=== PATIENT | female | born 1965 | race Two or more races ===

== ENCOUNTER 2021-12-25 12:33 | Inpatient (IN) | payer MEDICAID, SELFPAY ==
--- NOTE | ~2021-12-25 | XR_ITS ---
EXAMINATION: CHEST 2 VIEWS CLINICAL INFORMATION: TABARES . COMPARISON: No recent pertinent prior studies are available for comparison. TECHNIQUE: PA and lateral views of the chest obtained. FINDINGS: The lungs are well expanded. Minimal increased bibasilar markings more likely due to atelectasis. Early infiltrates considered less likely. Mild central vascular prominence but no associated effusion, overt edema, or pneumothorax. Cardiac and mediastinal silhouettes are within normal limits for technique. No acute bony abnormality seen XR/XR chest 2V IMPRESSION: Minimal increased basilar markings more likely due to atelectasis. Mild central vascular prominence but no overt edema
--- NOTE | ~2021-12-25 | US_ITS ---
EXAMINATION: US RETROPERITONEAL LIMITED (RENAL ONLY) and renal Doppler exam CLINICAL INFORMATION: Rule out renal artery stenosis. COMPARISON: None TECHNIQUE: Grayscale and color imaging of the kidneys. Grayscale color and Doppler imaging of the renal arteries in the waveform spectral analysis. FINDINGS: RIGHT KIDNEY: 9.1 x 5 x 4.7 cm (SAG x AP x TRV). The kidney is normal in size, contour, and echogenicity. Renal cortical thickness is normal. There are 3 stones measuring 6 mm in the upper pole, 5 mm in the midpole and 6 mm in the lower pole. No focal parenchymal lesions. No hydronephrosis. LEFT KIDNEY: 9.6 x 4.9 x 4.6 cm (SAG x AP x TRV). The kidney is normal in size, contour, and echogenicity. Renal cortical thickness is normal. There is a 5 mm stone in the midpole. No focal parenchymal lesions. No hydronephrosis. Aortic peak systolic velocity of the mid abdominal aorta is slightly elevated measuring 129 cm/s and cannot be used to calculate renal artery to aorta ratio. Visualization of the renal arteries is limited. Visualized right renal artery appears patent. The renal artery peak systolic velocities are normal measuring 87, 66 and 92 cm/s proximally, in the midportion and distally. Resistive indices in the interlobar arteries in the right kidney are normal measuring 0.7. The right renal vein is patent. The visualized left renal artery is patent. Left renal artery velocity measures 157, 49 and 71 cm/s proximally, in the midportion and distally. Left renal artery segmental resistive indices are slightly elevated measuring 0.8. The left renal vein is patent. US/US renal doppler IMPRESSION: Bilateral renal stones, right greater than left. Limited renal Doppler exam. Slightly elevated resistive indices in the left kidney otherwise renal Doppler exam.
[2021-12-25 12:47] VITALS: BP 219/95; PULSE 72; RESP 16; TEMP 35.8; O2SAT 97; BMI 29.4
[2021-12-25 13:48] VITALS: BP 204/88; PULSE 72; RESP 18; O2SAT 98
--- NOTE | 2021-12-25 13:51 | ECG_ITS ---
Test Reason : Barnes Blood Pressure : / mmHG Vent. Rate : 068 BPM Atrial Rate : 068 BPM P-R Int : 164 ms QRS Dur : 084 ms QT Int : 420 ms P-R-T Axes : 027 040 -67 degrees QTc Int : 446 ms Sinus rhythm with Fusion complexes and Premature atrial complexes Cannot rule out Inferior infarct , age undetermined ST & T wave abnormality, consider lateral ischemia Abnormal ECG No previous ECGs available Referred By: Trish Arrington Electronically Signed By:CASSIE STARKEY MD
--- NOTE | 2021-12-25 13:52 | ED_ITS ---
HPI - Female Genitourinary General Chief complaint: Urogenital-Female Stated complaint: Trouble urinating/bloating Time Seen by Provider: 12/25/21 13:34 Source: patient and science interpreter Mode of arrival: ambulatory Limitations: language barrier History of Present Illness HPI Narrative: 56 yo female with history of IDDM, HTN, CKD here with complaints of TABARES x 24 hrs with dry cough and feeling like her legs are swollen. NO CP, fevers, weight gain. Tells me her bp was high this morning and she took all her meds (her normal bp 180-190 systolic per patient). also c/o since yesterday only able to void small amounts with no reports of back pain, abdominal pain, urinary urgency/frequency/dysuria, fever. Related Data Home Medications Medication Instructions Recorded Confirmed amlodipine 10 mg tablet 1 tab PO DAILY 12/25/21 12/25/21 aspirin 81 mg tablet,delayed 1 tab PO DAILY 12/25/21 12/25/21 release atorvastatin 40 mg tablet 1 tab PO DAILY 12/25/21 12/25/21 carvedilol 25 mg tablet 1 tab PO BID 12/25/21 12/25/21 hydrochlorothiazide 12.5 mg capsule 1 cap PO QAM 12/25/21 12/25/21 insulin human U-100 NPH-regulr 25 unit SUBCUT DAILY@1000 12/25/21 12/25/21 70-30 mix 100 unit/mL subcutaneous susp (Humulin 70/30 U-100 Insulin) isosorbide mononitrate 30 mg 1 tab PO QAM 12/25/21 12/25/21 tablet,extended release 24 hr lisinopril 20 mg tablet 1 tab PO DAILY 12/25/21 12/25/21 Allergies Allergy/AdvReac Type Severity Reaction Status Date / Time Unable to Assess Allergy Verified 12/25/21 13:51 Review of Systems Review of Systems: Yes all other systems are reviewed and are negative Constitutional: Constitutional: Reports no additional constitutional c omplaints, Denies body ache(s), Denies chills, Denies fever(s), Denies headache(s) and Denies weakness Eyes: Eyes: Reports no additional eye complaints and Denies change in vision ENT: Reports system reviewed and no additional complaints, except as documented, Denies dizziness, Denies headache(s), Denies nasal congestion, Denies nasal discharge and Denies neck pain Cardiovascular: Cardiovascular: Reports no additional cardiovascular complaints, Denies chest pain, Reports leg edema, Denies dyspnea and Reports dyspnea on exertion Respiratory: Respiratory: Reports no additional respiratory complaints, Re ports cough, Denies dyspnea and Reports dyspnea on exertion Gastrointestinal: Gastrointestinal: Reports no additional gastrointestinal complaints, Denies abdominal pain, Denies diarrhea, Denies nausea and Denies vomiting Genitourinary: Genitourinary: Reports no additional female genitourinary complaints, Denies hematuria, Reports difficulty voiding, Denies dysuria, Denies pelvic pain, Denies flank pain, Denies urinary incontinence, Denies urinary hesitancy and Denies urinary urgency Comments: +voiding small amounts Musculoskeletal: Musculoskeletal: Reports no additional musculoskeletal complaints, Denies back pain, Denies arthralgias, Denies joint swelling, Denies neck pain, Denies numbness and Denies tingling Integumentary/Breasts: Skin/Breast: Reports system reviewed and no additional complaints, except as docu and Denies rash Neurologic: Reports system reviewed and no additional complaints, except as documented, Denies Abnormal speech present, Denies dizziness, Denies headache(s), Denies numbness, Denies tingling and Denies weakness PMFSH Past Medical History Attestation statement: The following information was validated with the patient. Source: old records reviewed and nursing notes reviewed Social History Social History Patient Tobacco Use Status: Never used Tobacco Use of substances other than those prescribed or required for medical reasons: No Advance Directives: No Advance Directives Information Provided: No Physical Exam Vital Signs: Vital Signs: Last Vital Signs Temp 97.8 F 12/25/21 18:25 Pulse 61 12/25/21 18:25 Resp 26 H 12/25/21 18:25 BP 152/66 H 12/25/21 18:25 Pulse Ox 99 12/25/21 18:25 BMI result Body Mass Index 29.4 Const: General: cooperative, healthy appearing, comfortable and no acute distress Orientation/consciousness: patient oriented x3 Limitations: no limitations HEENT: Head: Yes normal to inspection Ears: hearing grossly normal bilaterally General nose exam: Normal external nose present Face and sinus: Yes normal facial exam Mouth: Normal oral and palatal mucosa present Throat: Yes posterior oropharynx normal Eyes: General: appearance normal, both eyes and all related structures Pupils: Equal, round and reactive pupils present Neck: Neck: Yes normal visual inspection Chest: Chest palpation & inspection: normal inspection of the chest Resp: Effort & Inspection: normal respiratory effort Auscultation: clear to auscultation bilaterally Cardio: Rate: regular rate Rhythm: regular rhythm Peripheral pulses: Peripheral pulses 2+ throughout GI: Inspection: Yes normal to inspection Palpation (GI): Soft to palpation and nontender Auscultation: normal bowel sounds : General: Yes no CVA tenderness Back/Spine/Pelvis: Back: no CVA tenderness Thoracic/Lumbar Spine: thoracic and lumbar spine normal to inspection Skin: General skin exam: no rashes or lesions noted Neuro: General: patient oriented x3, no focal motor deficits and normal sensation to monofilament Cranial nerves: Yes Equal, round and reactive pupils present Cognition (Neuro): normal cognition Speech: No Abnormal speech present Gait exam (Neuro): Normal gait present Motor exam (neuro): 5/5 motor strength present throughout Extrem: Other: I don't appreciate any swelling General: Yes normal to inspection, Yes no pedal edema and Yes no calf tenderness Course Course Course Narrative: 56 yo female with history of HTN, CKD, IDDM here with multiple complaints (24 hrs of TABARES, cough, subjective leg swelling) and inability to empty bladder completely/voiding small amounts since yesterday. PVR 290ml of urine-will straight cath/send UA Will obtain EKG, CXR, labs, covid/flu testing 1620-labs show anemia, no baseline for comparison in no reports of active bleeding. Labs also show elevated creatinine and BUN with no previous for c omparison. Potassium is 5.2. Troponin is 52.2. No chest pain. ?from elevated creatinine. Atypical for ACS. EKG does have some T-wave inversions in V1 through V6 but I do not have any previous EKGs for comparison. Plan for repeat troponin. BNP is 1212. Chest x-ray shows some central pulmonary vascular congestion. Will give 40 mg of IV Lasix. No previous history of congestive heart failure. 1740-spoke to Cardiology Dr. Rodriguez. No need for heparin. Trend troponin. 1800-Spoke to medicine. Admission on hold till 7pm Reevaluation(s) Reevaluation #1: Spoke to Dr Novoa who accepted admission. Time: 19:30 MDM - Female Genitourinary Medical Records Attestation: I reviewed the patient's medical records. Lab Data Attestation: I reviewed the patient's lab results. Result diagrams: 12/25/21 15:07 12/25/21 15:07 Labs: Lab Results 12/25/21 12/25/21 12/25/21 Range/Units 14:58 14:58 14:58 WBC (4.8-10.8) X10*3/uL RBC (4.20-5.50) X10*6/uL Hgb (12.0-16.0) g/dl Hct (37.0-47.0) % MCV (80.0-98.0) fL MCH (27.0-33.0) pg MCHC (31.0-35.0) g/dl RDW (11.0-16.0) % Plt Count MPV (9.4-12.3) fL Immature Gran % (Auto) (0.0-0.4) % Neut % (Auto) (45-73) % Lymph % (Auto) (20-40) % [facility] % (Auto) (2-11) % Eos % (Auto) (0-4) % Baso % (Auto) (0-2) % Lymph # (Auto) (1.2-4.9) X10*3/uL [facility] # (Auto) (0.1-1.2) X10*3/uL Eos # (Auto) (0.0-0.4) X10*3/uL Baso # (Auto) (0.0-0.2) X10*3/uL Abs Immat Gran (auto) (0.00-0.03) X10*3/uL Absolute Neuts (auto) (2.0-8.3) x10*3/uL Absolute Nucleated RBC (0.0-0.012) X10*3/uL Nucleated RBC % (auto) (0.0-0.2) /100WBC Smear Tech's Comments PT (9.9-13.0) SEC INR (0.9-1.1) Sodium (135-145) mmol/L Potassium (3.3-5.1) mmol/L Chloride (96-108) mmol/L Carbon Dioxide (22-29) mmol/L Anion Gap (12-20) BUN (9-16) mg/dL Creatinine (0.5-1.4) mg/dL Estim Creat Clear Calc Estimated GFR Random Glucose (60-115) mg/dL Calcium (8.4-10.2) mg/dL Magnesium (1.6-2.6) mg/dL Total Bilirubin (0.0-1.0) mg/dL Direct Bilirubin (0.0-0.5) mg/dL AST (5-31) U/L ALT (0-31) U/L Alkaline Phosphatase (39-117) U/L Troponin I High Sens (<3.5-17.0) ng/L B-Natriuretic Peptide (<100) pg/mL Total Protein (6.5-8.0) g/dL Albumin (3.5-5.0) g/dL Urine Color YELLOW Urine Appearance CLEAR Urine pH 5.5 (5.0-8.0) Ur Specific Cobb 1.025 (1.005-1.025) Urine Protein 2+ H (NEG-TRACE) MG/DL Urine Glucose (UA) NEG (NEG) MG/DL Urine Ketones NEG (NEG) MG/DL Urine Blood TRACE (NEG) Urine Nitrite NEG (NEG) Ur Leukocyte Esterase NEG (NEG) Urine RBC 0-2 (0) /HPF Urine WBC 0-2 (0-4) /HPF Ur Squamous Epith Cells 1+ /LPF Amorphous Sediment TRACE /LPF Urine Bacteria TRACE /LPF Urine Mucus TRACE /LPF COVID-19 (FUNMILAYO) Negative (Negative) COVID-19 Clin Com See Note Influenza Type A (JV) Negative (Negative) Influenza Type B (JV) Negative (Negative) Influenza A & B Note See Note 12/25/21 12/25/21 12/25/21 Range/Units 15:07 15:07 15:07 WBC 7.6 (4.8-10.8) X10*3/uL RBC 3.34 L (4.20-5.50) X10*6/uL Hgb 8.7 L (12.0-16.0) g/dl Hct 28.1 L (37.0-47.0) % MCV 84.1 (80.0-98.0) fL MCH 26.0 L (27.0-33.0) pg MCHC 31.0 (31.0-35.0) g/dl RDW 13.2 (11.0-16.0) % Plt Count TNP MPV 11.5 (9.4-12.3) fL Immature Gran % (Auto) 0.7 H (0.0-0.4) % Neut % (Auto) 66.1 (45-73) % Lymph % (Auto) 24.6 (20-40) % [facility] % (Auto) 5.4 (2-11) % Eos % (Auto) 2.8 (0-4) % Baso % (Auto) 0.4 (0-2) % Lymph # (Auto) 1.9 (1.2-4.9) X10*3/uL [facility] # (Auto) 0.4 (0.1-1.2) X10*3/uL Eos # (Auto) 0.2 (0.0-0.4) X10*3/uL Baso # (Auto) 0.0 (0.0-0.2) X10*3/uL Abs Immat Gran (auto) 0.05 H (0.00-0.03) X10*3/uL Absolute Neuts (auto) 5.1 (2.0-8.3) x10*3/uL Absolute Nucleated RBC 0.000 (0.0-0.012) X10*3/uL Nucleated RBC % (auto) 0.0 (0.0-0.2) /100WBC Smear Tech's Comments VERIFIED PT 12.3 (9.9-13.0) SEC INR 1.1 (0.9-1.1) Sodium 139 (135-145) mmol/L Potassium 5.2 H (3.3-5.1) mmol/L Chloride 112 H (96-108) mmol/L Carbon Dioxide 17 L (22-29) mmol/L Anion Gap 15 (12-20) BUN 51 H (9-16) mg/dL Creatinine 2.46 H (0.5-1.4) mg/dL Estim Creat Clear Calc 25.8 Estimated GFR 20 Random Glucose 194 H (60-115) mg/dL Calcium 8.9 (8.4-10.2) mg/dL Magnesium 2.3 (1.6-2.6) mg/dL Total Bilirubin 0.4 (0.0-1.0) mg/dL Direct Bilirubin < 0.2 (0.0-0.5) mg/dL AST 22 (5-31) U/L ALT 22 (0-31) U/L Alkaline Phosphatase 118 H (39-117) U/L Troponin I High Sens (<3.5-17.0) ng/L B-Natriuretic Peptide (<100) pg/mL Total Protein 6.9 (6.5-8.0) g/dL Albumin 3.7 (3.5-5.0) g/dL Urine Color Urine Appearance Urine pH (5.0-8.0) Ur Specific Cobb (1.005-1.025) Urine Protein (NEG-TRACE) MG/DL Urine Glucose (UA) (NEG) MG/DL Urine Ketones (NEG) MG/DL Urine Blood (NEG) Urine Nitrite (NEG) Ur Leukocyte Esterase (NEG) Urine RBC (0) /HPF Urine WBC (0-4) /HPF Ur Squamous Epith Cells /LPF Amorphous Sediment /LPF Urine Bacteria /LPF Urine Mucus /LPF COVID-19 (FUNMILAYO) (Negative) COVID-19 Clin Com Influenza Type A (JV) (Negative) Influenza Type B (JV) (Negative) Influenza A & B Note 12/25/21 12/25/21 Range/Units 15:07 17:43 WBC (4.8-10.8) X10*3/uL RBC (4.20-5.50) X10*6/uL Hgb (12.0-16.0) g/dl Hct (37.0-47.0) % MCV (80.0-98.0) fL MCH (27.0-33.0) pg MCHC (31.0-35.0) g/dl RDW (11.0-16.0) % Plt Count MPV (9.4-12.3) fL Immature Gran % (Auto) (0.0-0.4) % Neut % (Auto) (45-73) % Lymph % (Auto) (20-40) % [facility] % (Auto) (2-11) % Eos % (Auto) (0-4) % Baso % (Auto) (0-2) % Lymph # (Auto) (1.2-4.9) X10*3/uL [facility] # (Auto) (0.1-1.2) X10*3/uL Eos # (Auto) (0.0-0.4) X10*3/uL Baso # (Auto) (0.0-0.2) X10*3/uL Abs Immat Gran (auto) (0.00-0.03) X10*3/uL Absolute Neuts (auto) (2.0-8.3) x10*3/uL Absolute Nucleated RBC (0.0-0.012) X10*3/uL Nucleated RBC % (auto) (0.0-0.2) /100WBC Smear Tech's Comments PT (9.9-13.0) SEC INR (0.9-1.1) Sodium (135-145) mmol/L Potassium (3.3-5.1) mmol/L Chloride (96-108) mmol/L Carbon Dioxide (22-29) mmol/L Anion Gap (12-20) BUN (9-16) mg/dL Creatinine (0.5-1.4) mg/dL Estim Creat Clear Calc Estimated GFR Random Glucose (60-115) mg/dL Calcium (8.4-10.2) mg/dL Magnesium (1.6-2.6) mg/dL Total Bilirubin (0.0-1.0) mg/dL Direct Bilirubin (0.0-0.5) mg/dL AST (5-31) U/L ALT (0-31) U/L Alkaline Phosphatase (39-117) U/L Troponin I High Sens 52.2 H* 64.6 H* (<3.5-17.0) ng/L B-Natriuretic Peptide 1212 H (<100) pg/mL Total Protein (6.5-8.0) g/dL Albumin (3.5-5.0) g/dL Urine Color Urine Appearance Urine pH (5.0-8.0) Ur Specific Cobb (1.005-1.025) Urine Protein (NEG-TRACE) MG/DL Urine Glucose (UA) (NEG) MG/DL Urine Ketones (NEG) MG/DL Urine Blood (NEG) Urine Nitrite (NEG) Ur Leukocyte Esterase (NEG) Urine RBC (0) /HPF Urine WBC (0-4) /HPF Ur Squamous Epith Cells /LPF Amorphous Sediment /LPF Urine Bacteria /LPF Urine Mucus /LPF COVID-19 (FUNMILAYO) (Negative) COVID-19 Clin Com Influenza Type A (JV) (Negative) Influenza Type B (JV) (Negative) Influenza A & B Note Imaging Data Chest x-ray: Attestation: I personally reviewed and interpreted this imaging study as follows: Radiologist's impression: FINDINGS: The lungs are well expanded. Minimal increased bibasilar markings more likely due to atelectasis. Early infiltrates considered less likely. Mild central vascular prominence but no associated effusion, overt edema, or pneumothorax. Cardiac and mediastinal silhouettes are within normal limits for technique. No acute bony abnormality seen XR/XR chest 2V IMPRESSION: Minimal increased basilar markings more likely due to atelectasis. Mild central vascular prominence but no overt edema ECG Data Attestation: I personally reviewed and interpreted this ECG as follows: ECG interpretation date: 12/25/21 ECG interpretation time: 14:44 Interpretation: SR with rate 68, normal pr, normal qrs, normal qt, ST changes throughout-no previous for comparison Discharge Plan Discharge Clinical Impression: CHF (congestive heart failure) Patient Disposition: Admitted As Inpatient
--- NOTE | 2021-12-25 13:55 | PC.NURSE ---
pt alert and oriented, skin appropriate for ethnicity, pt reports that when she urinates she feels like she is not emptying her bladder completely, denies pain/burning with urination. also states that she is having some sob but denies chest pain
[2021-12-25 14:53] VITALS: BP 174/76; PULSE 63; RESP 18; O2SAT 100
[2021-12-25 15:13] LABS: Appearance Urine CLEAR; Color Urine YELLOW; Glucose Urine UA NEG (NEG); Leukocyte Esterase Urine NEG (NEG); Nitrite Urine NEG (NEG); PH 5.5 (5.0-8.0); Specific Gravity - Urine 1.025 (1.005-1.025); UACC Culture Trigger NO; Urine Blood TRACE (NEG); Urine Ketones NEG (NEG); Urine Protein 2+ MG/DL (NEG-TRACE)
[2021-12-25 15:18] LABS: IDNOW Serial# 16C4AD1C; Influenza A Negative (Negative); Influenza B2 Negative (Negative)
[2021-12-25 15:19] LABS: COVID-19 Test Negative (Negative)
[2021-12-25 15:22] LABS: PLT CLUMP 1; SCAN SMEAR FLAG 1
[2021-12-25 15:24] LABS: Basophils Percent Auto 0.4 % (0-2); Eosinophils Absolute Auto 0.2 X10*3/uL (0.0-0.4); Eosinophils Percent Auto 2.8 % (0-4); Hematocrit 28.1 % (37.0-47.0); Hemoglobin 8.7 g/dl (12.0-16.0); Imm Gran Abs Auto 0.05 X10*3/uL (0.00-0.03); Imm Gran Pct Auto 0.7 % (0.0-0.4); Lymphocytes Absolute Auto 1.9 X10*3/uL (1.2-4.9); Lymphocytes Percent Auto 24.6 % (20-40); MANUAL DIFF FLAG SCAN; Mean Corpuscular Volume 84.1 fL (80.0-98.0); Mean Platelet Volume 11.5 fL (9.4-12.3); Monocytes Absolute Auto 0.4 X10*3/uL (0.1-1.2); Monocytes Percent Auto 5.4 % (2-11); Neutrophils Absolute Auto 5.1 x10*3/uL (2.0-8.3); Neutrophils Percent Auto 66.1 % (45-73); Red Blood Count 3.34 X10*6/uL (4.20-5.50); Red Cell Distribution Width 13.2 % (11.0-16.0)
[2021-12-25 15:25] LABS: INTERNATIONAL NORM RATIO 1.1 (0.9-1.1); Prothrombin Time 12.3 SEC (9.9-13.0)
[2021-12-25 15:35] LABS: Amorphous Sediment Urine TRACE /LPF; Bacteria Urine TRACE /LPF; Mucus Urine TRACE /LPF; RBC Urine 0-2 /HPF (0); Squamous Epithelial Cell Urine 1+ /LPF; WBC Urine 0-2 /HPF (0-4)
--- NOTE | 2021-12-25 15:39 | PC.NURSE ---
pt tolerated the strey cath well, drained 300ml of yellow urine
[2021-12-25 15:41] LABS: Alanine Aminotransferase 22 U/L (0-31); Albumin Level 3.7 g/dL (3.5-5.0); Alkaline Phosphatase 118 U/L (39-117); Anion Gap 15 (12-20); Aspartate Amino Transferase 22 U/L (5-31); Bilirubin Direct < 0.2 mg/dL (0.0-0.5); Bilirubin Total 0.4 mg/dL (0.0-1.0); Blood Urea Nitrogen 51 mg/dL (9-16); Calcium 8.9 mg/dL (8.4-10.2); Carbon Dioxide 17 mmol/L (22-29); Chloride 112 mmol/L (96-108); Creatinine Clr Calc Pharmacy 25.8; Estimated Glomerular Filt Rate 20; Glucose Random 194 mg/dL (60-115); Magnesium 2.3 mg/dL (1.6-2.6); Potassium 5.2 mmol/L (3.3-5.1); Sodium 139 mmol/L (135-145); Total Protein 6.9 g/dL (6.5-8.0)
[2021-12-25 15:42] LABS: White Blood Count 7.6 X10*3/uL (4.8-10.8)
[2021-12-25 15:43] LABS: B Type Natriuretic Peptide 1212 pg/mL (<100); Troponin-I High Sensitivity 52.2 ng/L (<3.5-17.0)
[2021-12-25 15:55] LABS: SLIDE REVIEW VERIFIED
[2021-12-25] MEDS: Furosemide 40 MG/4 ML VIAL IVPUSH (16:02)
[2021-12-25 16:03] VITALS: BP 168/76; PULSE 60; RESP 18; O2SAT 96
--- NOTE | 2021-12-25 17:44 | PHA.MEDREC ---
Pharmacy Consult ? Medication Reconciliation Pharmacy has completed the medication reconciliation. Spoke with patient in ED via clerical supervisor. patient took all morning med. pt had a list of medications she is taking from the [facility]
[2021-12-25 18:20] LABS: Troponin-I High Sensitivity 64.6 ng/L (<3.5-17.0)
[2021-12-25 18:25] VITALS: BP 152/66; PULSE 61; RESP 26; TEMP 36.6; O2SAT 99
[2021-12-25] MEDS: Enoxaparin Sodium 40 MG/0.4 ML SYRINGE SUBCUT (20:05)
--- NOTE | 2021-12-25 22:54 | PM.IMHP ---
History of Present Illness Date of Service: 12/25/21 Chief Complaint: SOB German-speaking only, history is obtained with the help of asl interpreter over eye pad This is a 56-year-old female with past medical history of diabetes, hypertension, coronary artery disease who presents to the hospital with complaints of shortness of breath on minimal exertion as well as decreased urine output. Patient reports orthopnea, PND, lower extremity edema, as well as a dry cough for the past 1 day . she is also complaining of decreased urine output, she denies any dysuria, urgency. she tells me that she has been using more than 2 pillows to be able to sleep without having shortness of breath while lying flat. Patient denies any chest pain, no nausea or vomiting, no diarrhea constipation, no urinary symptoms and no headache or change in vision. On arrival to the ED patient noted to be hemodynamically stable labs are significant for WBC count of 9.1, hemoglobin of 8.9 with no previous for comparison, hematocrit during 8.1, MCV of 84.1, initial potassium of 5.2 which improved 4.4, chloride of 112, creatinine of 2.46, troponin of 50 to increase to 64.6, BNP of 1212, UA negative, COVID-19 negative, influenza A/B as well as RSV negative Chest x-ray shows minimal increased basilar markings EKG shows sinus rhythm with fusion complexes and PACs, diffuse T-wave abnormalities. patient given IV Lasix, discussed with Cardiology, and will be admitted for further management Review of Systems Review of Systems: Yes all other systems are reviewed and are negative [facility] Medical History (Updated 12/26/21 @ 06:18 by Jonelle Novoa MD) CAD (coronary artery disease) Diabetes Hypertension Family History (Updated 12/26/21 @ 06:17 by Jonelle Novoa MD) Other No family history of coronary artery disease Surgical History (Updated 12/26/21 @ 06:18 by Jonelle Novoa MD) No pertinent past surgical history Social History Patient Tobacco Use Status: Never used Tobacco Use of substances other than those prescribed or required for medical reasons: No Advance Directives: No Advance Directives Information Provided: No Meds Allergies Allergy/AdvReac Type Severity Reaction Status Date / Time Unable to Assess Allergy Verified 12/25/21 13:51 Active Medications: Current Medications Acetaminophen (Acetaminophen 325 Mg Tablet) 650 mg PO Q6H PRN PRN Reason: Pain, Mild (Pain Scale 1-3) Docusate Sodium (Docusate Sodium 100 Mg Capsule) 100 mg PO DAILY PRN PRN Reason: Constipation Enoxaparin Sodium (Enoxaparin Sodium 40 Mg/0.4 Ml Syringe) 40 mg SUBCUT Q24H [facility] Last Admin: 12/25/21 20:05 Dose: 40 mg Documented by: Furosemide (Furosemide 40 Mg/4 Ml Vial) 40 mg IVPUSH DAILY [facility]; Protocol Ondansetron HCl (Ondansetron Hcl 4 Mg/2 Ml Vial) 4 mg IVPUSH Q8H PRN PRN Reason: Nausea and Vomiting Pharmacy Consult (Consult Rx Perform Med Rec) 1 each MISCELLANE ONCE PRN PRN Reason: Consult order Sodium Chloride (0.9 % Sodium Chloride Flush 3 Ml Syringe) 3 ml IVFLUSH QSHIFT [facility] Home Medications Medication Instructions Recorded Confirmed Last Taken Type amlodipine 10 mg tablet 1 tab PO DAILY 12/25/21 12/25/21 12/25/21 History aspirin 81 mg tablet,delayed 1 tab PO DAILY 12/25/21 12/25/21 12/25/21 History release atorvastatin 40 mg tablet 1 tab PO DAILY 12/25/21 12/25/21 12/25/21 History carvedilol 25 mg tablet 1 tab PO BID 12/25/21 12/25/21 12/25/21 History hydrochlorothiazide 12.5 mg capsule 1 cap PO QAM 12/25/21 12/25/21 12/25/21 History insulin human U-100 NPH-regulr 25 unit SUBCUT DAILY@1000 12/25/21 12/25/21 12/25/21 History 70-30 mix 100 unit/mL subcutaneous susp (Humulin 70/30 U-100 Insulin) isosorbide mononitrate 30 mg 1 tab PO QAM 12/25/21 12/25/21 12/25/21 History tablet,extended release 24 hr lisinopril 20 mg tablet 1 tab PO DAILY 12/25/21 12/25/21 12/25/21 History Physical Exam Vital Signs and Narrative: Vital Signs: Last Vital Signs Temp 97.8 F 12/25/21 18:25 Pulse 61 12/25/21 18:25 Resp 26 H 12/25/21 18:25 BP 152/66 H 12/25/21 18:25 Pulse Ox 99 12/25/21 18:25 BMI result Body Mass Index 29.4 Const: General: cooperative and no acute distress Orientation/consciousness: patient oriented x3 Eyes: General: appearance normal, both eyes and all related structures Pupils: Equal, round and reactive pupils present Resp: Other: no respiratory distress, some rhonchi in the basilar regions Effort & Inspection: normal respiratory effort Cardio: Rate: regular rate Rhythm: regular rhythm GI: Palpation (GI): Soft to palpation Auscultation: normal bowel sounds Skin: General skin exam: no rashes or lesions noted Neuro: General: patient oriented x3 Cranial nerves: Yes Equal, round and reactive pupils present Cognition (Neuro): normal cognition Extrem: General: Yes normal to inspection and Yes no pedal edema Results Labs CBC and Chem 7: 12/26/21 03:47 12/26/21 03:47 Labs: Laboratory Results - last 24 hr 12/25/21 12/25/21 12/25/21 14:58 14:58 14:58 MCV MCH MCHC RDW Plt Count MPV Immature Gran % (Auto) Neut % (Auto) Lymph % (Auto) Stokes % (Auto) Eos % (Auto) Baso % (Auto) Lymph # (Auto) Stokes # (Auto) Eos # (Auto) Baso # (Auto) Abs Immat Gran (auto) Absolute Neuts (auto) Absolute Nucleated RBC Nucleated RBC % (auto) Smear Tech's Comments PT INR Anion Gap Estim Creat Clear Calc Estimated GFR Random Glucose Calcium Magnesium Total Bilirubin Direct Bilirubin AST ALT Alkaline Phosphatase Troponin I High Sens B-Natriuretic Peptide Total Protein Albumin Urine Color YELLOW Urine Appearance CLEAR Urine pH 5.5 Ur Specific [place] 1.025 Urine Protein 2+ H Urine Glucose (UA) NEG Urine Ketones NEG Urine Blood TRACE Urine Nitrite NEG Ur Leukocyte Esterase NEG Urine RBC 0-2 Urine WBC 0-2 Ur Squamous Epith Cells 1+ Amorphous Sediment TRACE Urine Bacteria TRACE Urine Mucus TRACE COVID-19 (FUNMILAYO) Negative COVID-19 Clin Com See Note Influenza Type A (JV) Negative Influenza Type B (JV) Negative Influenza A & B Note See Note 12/25/21 12/25/21 12/25/21 15:07 15:07 15:07 MCV 84.1 MCH 26.0 L MCHC 31.0 RDW 13.2 Plt Count TNP MPV 11.5 Immature Gran % (Auto) 0.7 H Neut % (Auto) 66.1 Lymph % (Auto) 24.6 Stokes % (Auto) 5.4 Eos % (Auto) 2.8 Baso % (Auto) 0.4 Lymph # (Auto) 1.9 Stokes # (Auto) 0.4 Eos # (Auto) 0.2 Baso # (Auto) 0.0 Abs Immat Gran (auto) 0.05 H Absolute Neuts (auto) 5.1 Absolute Nucleated RBC 0.000 Nucleated RBC % (auto) 0.0 Smear Tech's Comments VERIFIED PT 12.3 INR 1.1 Anion Gap 15 Estim Creat Clear Calc 25.8 Estimated GFR 20 Random Glucose 194 H Calcium 8.9 Magnesium 2.3 Total Bilirubin 0.4 Direct Bilirubin < 0.2 AST 22 ALT 22 Alkaline Phosphatase 118 H Troponin I High Sens B-Natriuretic Peptide Total Protein 6.9 Albumin 3.7 Urine Color Urine Appearance Urine pH Ur Specific [place] Urine Protein Urine Glucose (UA) Urine Ketones Urine Blood Urine Nitrite Ur Leukocyte Esterase Urine RBC Urine WBC Ur Squamous Epith Cells Amorphous Sediment Urine Bacteria Urine Mucus COVID-19 (FUNMILAYO) COVID-19 Clin Com Influenza Type A (JV) Influenza Type B (JV) Influenza A & B Note 12/25/21 12/25/21 15:07 17:43 MCV MCH MCHC RDW Plt Count MPV Immature Gran % (Auto) Neut % (Auto) Lymph % (Auto) Stokes % (Auto) Eos % (Auto) Baso % (Auto) Lymph # (Auto) Stokes # (Auto) Eos # (Auto) Baso # (Auto) Abs Immat Gran (auto) Absolute Neuts (auto) Absolute Nucleated RBC Nucleated RBC % (auto) Smear Tech's Comments PT INR Anion Gap Estim Creat Clear Calc Estimated GFR Random Glucose Calcium Magnesium Total Bilirubin Direct Bilirubin AST ALT Alkaline Phosphatase Troponin I High Sens 52.2 H* 64.6 H* B-Natriuretic Peptide 1212 H Total Protein Albumin Urine Color Urine Appearance Urine pH Ur Specific [place] Urine Protein Urine Glucose (UA) Urine Ketones Urine Blood Urine Nitrite Ur Leukocyte Esterase Urine RBC Urine WBC Ur Squamous Epith Cells Amorphous Sediment Urine Bacteria Urine Mucus COVID-19 (FUNMILAYO) COVID-19 Clin Com Influenza Type A (JV) Influenza Type B (JV) Influenza A & B Note Imaging Radiologist's Impressions: Impressions Chest X-Ray 12/25/21 14:09 IMPRESSION: Minimal increased basilar markings more likely due to atelectasis. Mild central vascular prominence but no overt edema Assessment and Plan (1) CHF (congestive heart failure): Status: Acute (2) Normocytic anemia: Status: Acute (3) MARIA ESTHER (acute kidney injury): Status: Acute (4) Elevated troponin: Status: Acute Plan 56-year-old female past medical history of CAD, hypertension, diabetes presents to the hospital with complaints of shortness of breath as well as decreased urine output # acute CHF exacerbation - appears to be new onset - unclear exacerbating factors but patient has had hypertensive crisis and reports chronic unclear shoulder hypertension - at this time will treat with IV Lasix, strict I&O, daily weight, and low-sodium diet - will obtain echocardiogram - cardiology consulted # elevated troponin - likely multifactorial in the setting of acute CHF as well as hypertension - denies any chest pain - EKG shows marked T-wave abnormalities, patient was discussed with Cardiology, felt to be type 2, - will monitor on telemetry # MARIA ESTHER - likely prerenal - treating with IV Lasix - follow BMP # normocytic anemia - no evidence of acute GI bleed - denies any melena, or hemoptysis or hematemesis or hematochezia - will obtain stool occult, B12, folic acid, and ferritin # hypertension - elevated - will resume home medication # CAD - no chest pain - troponins above - continue aspirin, carvedilol, # diabetes - continue home insulin - diabetic diet - low-dose sliding scale insulin DVT prophylaxis: Heparin subQ Quality Stroke Does the patient have a stroke diagnosis?: No VTE Prior VTE?: No VTE Risk Level:: Medical - moderate - high VTE Device Contraindication: Treatment Not Indicated VTE Drug Contraindication: N/A - Med Ordered
[2021-12-25 23:59] VITALS: BP 162/59; PULSE 62; RESP 19; O2SAT 94
[2021-12-26 04:00] VITALS: BP 147/72; PULSE 67; RESP 19; O2SAT 96
[2021-12-26 04:11] LABS: MANUAL DIFF FLAG NO
[2021-12-26 04:25] LABS: Basophils Percent Auto 0.4 % (0-2); Eosinophils Absolute Auto 0.2 X10*3/uL (0.0-0.4); Eosinophils Percent Auto 2.3 % (0-4); Hematocrit 27.7 % (37.0-47.0); Hemoglobin 8.9 g/dl (12.0-16.0); Imm Gran Abs Auto 0.04 X10*3/uL (0.00-0.03); Imm Gran Pct Auto 0.4 % (0.0-0.4); Lymphocytes Absolute Auto 2.1 X10*3/uL (1.2-4.9); Lymphocytes Percent Auto 23.5 % (20-40); Mean Corpuscular HGB Conc 32.1 g/dl (31.0-35.0); Mean Corpuscular Hemoglobin 26.9 pg (27.0-33.0); Mean Corpuscular Volume 83.7 fL (80.0-98.0); Mean Platelet Volume 11.8 fL (9.4-12.3); Monocytes Absolute Auto 0.6 X10*3/uL (0.1-1.2); Monocytes Percent Auto 6.1 % (2-11); Neutrophils Absolute Auto 6.1 x10*3/uL (2.0-8.3); Neutrophils Percent Auto 67.3 % (45-73); Platelet Count 170 X10*3/uL (160-400); Red Blood Count 3.31 X10*6/uL (4.20-5.50); Red Cell Distribution Width 12.9 % (11.0-16.0); White Blood Count 9.1 X10*3/uL (4.8-10.8)
[2021-12-26 04:47] LABS: Anion Gap 15 (12-20); Blood Urea Nitrogen 49 mg/dL (9-16); Carbon Dioxide 16 mmol/L (22-29); Chloride 113 mmol/L (96-108); Creatinine Clr Calc Pharmacy 29.3; Estimated Glomerular Filt Rate 24; Glucose Random 85 mg/dL (60-115); Potassium 4.4 mmol/L (3.3-5.1); Sodium 140 mmol/L (135-145)
--- NOTE | 2021-12-26 06:21 | PC.NURSE ---
Pt sleeping, chest rise and fall observed, Pt remained without complaint through out the night, LR infusing, safety maintained, call light in reacch, this RN continues to monitor.
[2021-12-26 07:22] LABS: Ferritin 125 ng/mL (10-250)
[2021-12-26 07:51] LABS: Glucose, Whole Blood 93 mg/dL (60-115)
[2021-12-26 08:47] LABS: Iron 33 mcg/dL (30-160); Percent Iron Saturation 13 % (15-50); Total Iron Binding Capacity 248 mcg/dL (228-428); Unsaturated Iron Binding 215 ug/dL
[2021-12-26] MEDS: 0.9 % Sodium Chloride Flush 3 ML SYRINGE IVFLUSH (10:45)
[2021-12-26] MEDS: Insulin Glargine,Hum.rec.anlog 100 UNIT/ML 10 ML VIAL 14 UNIT SUBCUT (10:45)
[2021-12-26] MEDS: Atorvastatin Calcium 40 MG TABLET PO (10:47)
[2021-12-26] MEDS: Isosorbide Mononitrate 30 MG TAB.ER.24H PO (10:47)
[2021-12-26] MEDS: Furosemide 40 MG/4 ML VIAL IVPUSH (10:47)
[2021-12-26] MEDS: amLODIPine Besylate 10 MG TABLET PO (10:47)
[2021-12-26] MEDS: Aspirin Enteric Coated 81 MG TABLET.DR PO (10:47)
[2021-12-26] MEDS: carvediloL 25 MG TABLET PO ×2 (10:47→21:04)
--- NOTE | 2021-12-26 11:31 | MHC.CM.PN ---
Addendum entered by Molly Blanco 12/26/21 11:46: VAX X2 PFIZER. PATIENT HAS CARDIAC HX STENT X 2. CKD STAGE 2 Original Note: FEMALE 56 DX ACUTE CHF SHE LIVES WITH FAMILY. RECENTLY MOVED FROM [facility] 09/07. A HCP HAS BEEN DOCUMENTED AND SCANNED INTO RECORD. COPIES HAVE BEEN PROVIDED TO THE PATIENT. SHE IS INDEPENDENT WITH ALL FUNCTIONAL MOBILITY. PCP IS @ [facility]. CARDIOLOGY HAS SEEN THE PATIENT. SHE REQUIRES DIERESES. DP HOME WITH SERVICES FAMILY [place]SP[place] [facility] [place]UR[place] WORK UP. US HEART AND RENAL PLANNED. AN TRANSPORTATION DEPARTMENT SUPERVISOR WAS REQUIRED FOR INTERVIEW.
--- NOTE | 2021-12-26 12:26 | PM.CNCAR ---
History of Present Illness History of Present Illness Date of Service: 12/26/21 Requesting physician: Candelaria Brown Consult reason: congestive heart failure Chief complaint: Acute CHF Narrative: I was requested to see Awa in cardiology consultation for congestive heart failure. History was obtained with help of for rock room worker. Patient present hospital because she has been getting progressively short of breath over the last 2-3 months and then over the last few days she has been getting short of breath laying down and yesterday got severely short of breath and decided to come to the emergency room. She had no associated chest pain. No palpitations, lightheadedness, syncope. She denies any clear palpitations or irregular heartbeat. No change in her diet or medications. She on presentation was noted to be in heart failure and was also noted to be hypertensive. She says she generally runs hypertensive the blood pressure is not well controlled. She takes all her medications. She denies loading a with salt. No recent systemic symptoms of illness. She has prior history of stents, 4 years ago in [place] in 2 years ago in [place]. Do not have the copy of this report. She also says she had partial or significant blockage other vessels but there were not treated as there were small are not able to be treated with stents. This is unclear. We need to get old reports. Patient was noted to have elevated creatinine. She was then given IV Lasix and she is diuresing creatinine is improved. She remained short of breath though. Overall diuresis appears to be modest. Review of Systems Constitutional: Constitutional: Reports no additional constitutional complaints Eyes: Eyes: Reports no additional eye complaints Cardiovascular: Cardiovascular: Denies chest pain, Denies chest pain with activity, Denies leg edema, Denies lightheadedness, Denies Loss of Consciousness, Denies palpitations, Reports dyspnea on exertion and Reports orthopnea Respiratory: Respiratory: Reports no additional respiratory complaints and Reports dyspnea on exertion Gastrointestinal: Gastrointestinal: Reports no additional gastrointestinal complaints Genitourinary: Genitourinary: Reports no additional female genitourinary complaints Musculoskeletal: Musculoskeletal: Reports no additional musculoskeletal complaints Integumentary/Breasts: Skin/Breast: Reports system reviewed and no additional complaints, except as docu Neurologic: Reports system reviewed and no additional complaints, except as documented Psychiatric: Psychiatric: Reports no additional psychiatric complaints Endocrine: Endocrine: Reports no additional endocrine complaints and Denies palpitations Hematologic/Lymphatic: Hematologic/Lymphatic: Reports no additional hematologic/lymphatic complaints Allergic/Immunologic: Allergic/Immunologic: Reports no additional allergic/immunologic complaints [facility] Past Medical History Medical History CAD (coronary artery disease) Diabetes Hypertension Family History Family History Other No family history of coronary artery disease Surgical History Surgical History No pertinent past surgical history Social History Social History Patient Tobacco Use Status: Never used Tobacco Use of substances other than those prescribed or required for medical reasons: No Advance Directives: No Advance Directives Information Provided: No service: No Current occupational status: unemployed Meds Allergies Allergy/AdvReac Type Severity Reaction Status Date / Time Unable to Assess Allergy Verified 12/25/21 13:51 Active Medications: Current Medications Acetaminophen (Acetaminophen 325 Mg Tablet) 650 mg PO Q6H PRN PRN Reason: Pain, Mild (Pain Scale 1-3) Amlodipine Besylate (Amlodipine Besylate 10 Mg Tablet) 10 mg PO DAILY [facility]; Protocol Last Admin: 12/26/21 10:47 Dose: 10 mg Documented by: Aspirin (Aspirin Enteric Coated 81 Mg Tablet.) 81 mg PO DAILY [facility] Last Admin: 12/26/21 10:47 Dose: 81 mg Documented by: Atorvastatin Calcium (Atorvastatin Calcium 40 Mg Tablet) 40 mg PO DAILY [facility] Last Admin: 12/26/21 10:47 Dose: 40 mg Documented by: Carvedilol (Carvedilol 25 Mg Tablet) 25 mg PO BID [facility]; Protocol Last Admin: 12/26/21 10:47 Dose: 25 mg Documented by: Dextrose (Dextrose 50 % 25 Gm/50 Ml Syringe) 25 gm IVPUSH Q15M PRN; Protocol PRN Reason: per Hypoglycemia Standing Ord. Docusate Sodium (Docusate Sodium 100 Mg Capsule) 100 mg PO DAILY PRN PRN Reason: Constipation Enoxaparin Sodium (Enoxaparin Sodium 40 Mg/0.4 Ml Syringe) 40 mg SUBCUT Q24H [facility] Last Admin: 12/25/21 20:05 Dose: 40 mg Documented by: Glucose (Glucose Gel 15 Gm Gel..Gram.) 15 gm PO Q15M PRN; Protocol PRN Reason: per Hypoglycemia Standing Ord. Furosemide 200 mg/ Sodium (Chloride) 100 mls @ 5 mls/hr IVCONT .Q20H [facility] Insulin Glargine (Insulin Glargine,Hum.Rec.Anlog 100 Unit/Ml 10 Ml Vial) 14 unit SUBCUT DAILY@1000 [facility] Last Admin: 12/26/21 10:45 Dose: 14 unit Documented by: Insulin Human Lispro (Insulin Lispro 100 Unit/Ml 3 Ml Vial) 0 unit SUBCUT QIDACHS [facility]; Protocol Last Admin: 12/26/21 07:55 Dose: Not Given Documented by: Isosorbide Mononitrate (Isosorbide Mononitrate 30 Mg Tab.Er.24h) 30 mg PO DAILY [facility]; Protocol Last Admin: 12/26/21 10:47 Dose: 30 mg Documented by: Lisinopril (Lisinopril 20 Mg Tablet) 20 mg PO DAILY [facility]; Protocol Last Admin: 12/26/21 08:50 Dose: Not Given Documented by: Ondansetron HCl (Ondansetron Hcl 4 Mg/2 Ml Vial) 4 mg IVPUSH Q8H PRN PRN Reason: Nausea and Vomiting Pharmacy Consult (Consult Rx Perform Med Rec) 1 each MISCELLANE ONCE PRN PRN Reason: Consult order Sodium Chloride (0.9 % Sodium Chloride Flush 3 Ml Syringe) 3 ml IVFLUSH QSHIFT [facility] Last Admin: 12/26/21 10:45 Dose: 3 ml Documented by: Home Medications Medication Instructions Recorded Confirmed Last Taken Type amlodipine 10 mg tablet 1 tab PO DAILY 12/25/21 12/25/21 12/25/21 History aspirin 81 mg tablet,delayed 1 tab PO DAILY 12/25/21 12/25/21 12/25/21 History release atorvastatin 40 mg tablet 1 tab PO DAILY 12/25/21 12/25/21 12/25/21 History carvedilol 25 mg tablet 1 tab PO BID 12/25/21 12/25/21 12/25/21 History hydrochlorothiazide 12.5 mg capsule 1 cap PO QAM 12/25/21 12/25/21 12/25/21 History insulin human U-100 NPH-regulr 25 unit SUBCUT DAILY@1000 12/25/21 12/25/21 12/25/21 History 70-30 mix 100 unit/mL subcutaneous susp (Humulin 70/30 U-100 Insulin) isosorbide mononitrate 30 mg 1 tab PO QAM 12/25/21 12/25/21 12/25/21 History tablet,extended release 24 hr lisinopril 20 mg tablet 1 tab PO DAILY 12/25/21 12/25/21 12/25/21 History Physical Exam Vital Signs: Vital Signs: Last Vital Signs Temp 97.8 F 12/25/21 18:25 Pulse 67 12/26/21 04:00 Resp 19 12/26/21 04:00 BP 147/72 H 12/26/21 04:00 Pulse Ox 96 12/26/21 04:00 BMI result Body Mass Index 29.4 Const: General: cooperative, alert, awake and in distress moderate and respiratory Nutritional Appearance: overweight Orientation/consciousness: patient oriented x3 Limitations: no limitations HEENT: Head: Yes normocephalic and Yes atraumatic Neck: Neck: Yes trachea midline, Yes supple and Yes JVD Chest: Chest palpation & inspection: normal inspection of the chest Resp: Effort & Inspection: normal respiratory effort Auscultation: rales bilateral 1/[address] up Cardio: Jugular venous distension: JVD Palpation: normal PMI Rate: regular rate Rhythm: regular rhythm Heart sounds: S1 normal heart sound present, S2 normal heart sound present, no click, no gallops, no murmurs and no rubs GI: Auscultation: normal bowel sounds Skin: General skin exam: no rashes or lesions noted Neuro: General: patient oriented x3 and no focal motor deficits Extrem: General: No clubbing, No cyanosis and Yes edema Objective Labs and Meds Result diagrams: 12/26/21 03:47 12/26/21 03:47 Lab results: Laboratory Results - last 24 hr 12/25/21 12/25/21 12/25/21 14:58 14:58 14:58 WBC RBC Hgb Hct MCV MCH MCHC RDW Plt Count MPV Immature Gran % (Auto) Neut % (Auto) Lymph % (Auto) [place] % (Auto) Eos % (Auto) Baso % (Auto) Lymph # (Auto) [place] # (Auto) Eos # (Auto) Baso # (Auto) Abs Immat Gran (auto) Absolute Neuts (auto) Absolute Nucleated RBC Nucleated RBC % (auto) Smear Tech's Comments PT INR Sodium Potassium Chloride Carbon Dioxide Anion Gap BUN Creatinine Estim Creat Clear Calc Estimated GFR POC Glucose Random Glucose Calcium Magnesium Iron TIBC % Saturation Unsat Iron Binding Ferritin Total Bilirubin Direct Bilirubin AST ALT Alkaline Phosphatase Troponin I High Sens B-Natriuretic Peptide Total Protein Albumin Urine Color YELLOW Urine Appearance CLEAR Urine pH 5.5 Ur Specific [place] 1.025 Urine Protein 2+ H Urine Glucose (UA) NEG Urine Ketones NEG Urine Blood TRACE Urine Nitrite NEG Ur Leukocyte Esterase NEG Urine RBC 0-2 Urine WBC 0-2 Ur Squamous Epith Cells 1+ Amorphous Sediment TRACE Urine Bacteria TRACE Urine Mucus TRACE COVID-19 (FUNMILAYO) Negative COVID-19 Clin Com See Note Influenza Type A (JV) Negative Influenza Type B (JV) Negative Influenza A & B Note See Note 12/25/21 12/25/21 12/25/21 15:07 15:07 15:07 WBC 7.6 RBC 3.34 L Hgb 8.7 L Hct 28.1 L MCV 84.1 MCH 26.0 L MCHC 31.0 RDW 13.2 Plt Count TNP MPV 11.5 Immature Gran % (Auto) 0.7 H Neut % (Auto) 66.1 Lymph % (Auto) 24.6 [place] % (Auto) 5.4 Eos % (Auto) 2.8 Baso % (Auto) 0.4 Lymph # (Auto) 1.9 [place] # (Auto) 0.4 Eos # (Auto) 0.2 Baso # (Auto) 0.0 Abs Immat Gran (auto) 0.05 H Absolute Neuts (auto) 5.1 Absolute Nucleated RBC 0.000 Nucleated RBC % (auto) 0.0 Smear Tech's Comments VERIFIED PT 12.3 INR 1.1 Sodium 139 Potassium 5.2 H Chloride 112 H Carbon Dioxide 17 L Anion Gap 15 BUN 51 H Creatinine 2.46 H Estim Creat Clear Calc 25.8 Estimated GFR 20 POC Glucose Random Glucose 194 H Calcium 8.9 Magnesium 2.3 Iron TIBC % Saturation Unsat Iron Binding Ferritin Total Bilirubin 0.4 Direct Bilirubin < 0.2 AST 22 ALT 22 Alkaline Phosphatase 118 H Troponin I High Sens B-Natriuretic Peptide Total Protein 6.9 Albumin 3.7 Urine Color Urine Appearance Urine pH Ur Specific [place] Urine Protein Urine Glucose (UA) Urine Ketones Urine Blood Urine Nitrite Ur Leukocyte Esterase Urine RBC Urine WBC Ur Squamous Epith Cells Amorphous Sediment Urine Bacteria Urine Mucus COVID-19 (FUNMILAYO) COVID-19 Clin Com Influenza Type A (JV) Influenza Type B (JV) Influenza A & B Note 12/25/21 12/25/21 12/26/21 15:07 17:43 03:47 WBC 9.1 RBC 3.31 L Hgb 8.9 L Hct 27.7 L MCV 83.7 MCH 26.9 L MCHC 32.1 RDW 12.9 Plt Count 170 MPV 11.8 Immature Gran % (Auto) 0.4 Neut % (Auto) 67.3 Lymph % (Auto) 23.5 [place] % (Auto) 6.1 Eos % (Auto) 2.3 Baso % (Auto) 0.4 Lymph # (Auto) 2.1 [place] # (Auto) 0.6 Eos # (Auto) 0.2 Baso # (Auto) 0.0 Abs Immat Gran (auto) 0.04 H Absolute Neuts (auto) 6.1 Absolute Nucleated RBC 0.000 Nucleated RBC % (auto) 0.0 Smear Tech's Comments PT INR Sodium Potassium Chloride Carbon Dioxide Anion Gap BUN Creatinine Estim Creat Clear Calc Estimated GFR POC Glucose Random Glucose Calcium Magnesium Iron TIBC % Saturation Unsat Iron Binding Ferritin Total Bilirubin Direct Bilirubin AST ALT Alkaline Phosphatase Troponin I High Sens 52.2 H* 64.6 H* B-Natriuretic Peptide 1212 H Total Protein Albumin Urine Color Urine Appearance Urine pH Ur Specific [place] Urine Protein Urine Glucose (UA) Urine Ketones Urine Blood Urine Nitrite Ur Leukocyte Esterase Urine RBC Urine WBC Ur Squamous Epith Cells Amorphous Sediment Urine Bacteria Urine Mucus COVID-19 (FUNMILAYO) COVID-19 Clin Com Influenza Type A (JV) Influenza Type B (JV) Influenza A & B Note 12/26/21 12/26/21 03:47 07:35 WBC RBC Hgb Hct MCV MCH MCHC RDW Plt Count MPV Immature Gran % (Auto) Neut % (Auto) Lymph % (Auto) [place] % (Auto) Eos % (Auto) Baso % (Auto) Lymph # (Auto) [place] # (Auto) Eos # (Auto) Baso # (Auto) Abs Immat Gran (auto) Absolute Neuts (auto) Absolute Nucleated RBC Nucleated RBC % (auto) Smear Tech's Comments PT INR Sodium 140 Potassium 4.4 Chloride 113 H Carbon Dioxide 16 L Anion Gap 15 BUN 49 H Creatinine 2.16 H Estim Creat Clear Calc 29.3 Estimated GFR 24 POC Glucose 93 Random Glucose 85 Calcium 9.0 Magnesium Iron 33 TIBC 248 % Saturation 13 L Unsat Iron Binding 215 Ferritin 125 Total Bilirubin Direct Bilirubin AST ALT Alkaline Phosphatase Troponin I High Sens B-Natriuretic Peptide Total Protein Albumin Urine Color Urine Appearance Urine pH Ur Specific [place] Urine Protein Urine Glucose (UA) Urine Ketones Urine Blood Urine Nitrite Ur Leukocyte Esterase Urine RBC Urine WBC Ur Squamous Epith Cells Amorphous Sediment Urine Bacteria Urine Mucus COVID-19 (FUNMILAYO) COVID-19 Clin Com Influenza Type A (JV) Influenza Type B (JV) Influenza A & B Note Imaging Radiologist's impression: Impressions Chest X-Ray 12/25/21 14:09 IMPRESSION: Minimal increased basilar markings more likely due to atelectasis. Mild central vascular prominence but no overt edema Assessment and Plan (1) Acute congestive heart failure: Status: Acute Acute congestive heart failure in middle-aged woman with multiple comorbidities including prior CAD, renal insufficiency, uncontrolled blood pressure, anemia. This was discuss with her with help of rock room worker. She still appears to be in decompensated heart failure. Needs more aggressive diuresis. Start Lasix 10 mg daily. Strict intake and output chart needs to be pursued. Also continue monitor renal function closely and replace electrolytes as needed. Blood pressure is better controlled now since reinstate mint of her medications. Continue the same. Would add Jardiance 10 mg to her regimen. Also once renal function improves could consider addition of Aldactone to her regimen. Given her uncontrolled blood pressure and prior CAD and vascular disease renal artery stenosis needs to be ruled out. Suggest renal duplex. Also suggest echocardiogram in the morning to assess LV systolic and diastolic function and evaluate for pulmonary hypertension. If she has significant systolic dysfunction and/or regional wall motion abnormality will require further ischemic evaluation by cardiac catheterization otherwise will pursue ischemic evaluation with noninvasive means. This was discussed with her. CHF education needs to be provided. Consider transfuse 1 unit of packed RBC to maintain hematocrit above 30. Will continue to follow with you. Greater than 30 minutes was spent in managing her complex care. Procedures Date of Service Date of Service: 12/26/21
[2021-12-26 12:37] VITALS: BP 167/73; PULSE 70; RESP 20; O2SAT 93
[2021-12-26] MEDS: Furosemide 200 MG in 0.9 % Sodium Chloride 80 ML IVCONT (12:53)
[2021-12-26 13:40] LABS: Glucose, Whole Blood 150 mg/dL (60-115)
[2021-12-26 14:43] LABS: Folate 15.7 ng/mL (> or = 4.0); Vitamin B12 389 pg/mL (200-900)
--- NOTE | 2021-12-26 15:48 | HO.PM.IMPN ---
Subjective Subjective Date of Service: 12/26/21 Interval History: chf, maria esther Review of Systems patient is significantly short of breath with sitting, denies any chest pain or nausea or vomiting or abdominal pain. Physical Exam Vital Signs: Vital Signs: Last Vital Signs Temp 97.8 F 12/25/21 18:25 Pulse 70 12/26/21 12:37 Resp 20 12/26/21 12:37 BP 167/73 H 12/26/21 12:37 Pulse Ox 93 12/26/21 12:37 BMI result Body Mass Index 29.4 Appearance: Alert.? Oriented X3.?sob , talks in short sentences. Eyes: Pupils equal, round and reactive to light.? Sclera nonicteric.? ENT: Pharynx normal.? Moist mucous membranes. cvs: rrr, [id number] , jvd present. res: clear to auscultation ,no rhonchii or wheezing abd: no rebound or guarding ,nt, bs present. ext pulses present , no cyanosis ,has edema neuro: axo3 , nonfocal. Objective Data Active Medications Acetaminophen (Acetaminophen 325 Mg Tablet) 650 mg PO Q6H PRN PRN Reason: Pain, Mild (Pain Scale 1-3) Amlodipine Besylate (Amlodipine Besylate 10 Mg Tablet) 10 mg PO DAILY [facility]; Protocol Last Admin: 12/26/21 10:47 Dose: 10 mg Documented by: STEPHANIE Aspirin (Aspirin Enteric Coated 81 Mg Tablet.) 81 mg PO DAILY [facility] Last Admin: 12/26/21 10:47 Dose: 81 mg Documented by: STEPHANIE Atorvastatin Calcium (Atorvastatin Calcium 40 Mg Tablet) 40 mg PO DAILY [facility] Last Admin: 12/26/21 10:47 Dose: 40 mg Documented by: STEPHANIE Carvedilol (Carvedilol 25 Mg Tablet) 25 mg PO BID [facility]; Protocol Last Admin: 12/26/21 10:47 Dose: 25 mg Documented by: STEPHANIE Dextrose (Dextrose 50 % 25 Gm/50 Ml Syringe) 25 gm IVPUSH Q15M PRN; Protocol PRN Reason: per Hypoglycemia Standing Ord. Docusate Sodium (Docusate Sodium 100 Mg Capsule) 100 mg PO DAILY PRN PRN Reason: Constipation Enoxaparin Sodium (Enoxaparin Sodium 40 Mg/0.4 Ml Syringe) 40 mg SUBCUT Q24H [facility] Last Admin: 12/25/21 20:05 Dose: 40 mg Documented by: KIERSTEN Glucose (Glucose Gel 15 Gm Gel..Gram.) 15 gm PO Q15M PRN; Protocol PRN Reason: per Hypoglycemia Standing Ord. Furosemide 200 mg/ Sodium (Chloride) 100 mls @ 5 mls/hr IVCONT .Q20H [facility] Last Admin: 12/26/21 12:53 Dose: 10 mg/hr, 5 mls/hr Documented by: KAT Insulin Glargine (Insulin Glargine,Hum.Rec.Anlog 100 Unit/Ml 10 Ml Vial) 14 unit SUBCUT DAILY@1000 [facility] Last Admin: 12/26/21 10:45 Dose: 14 unit Documented by: STEPHANIE Insulin Human Lispro (Insulin Lispro 100 Unit/Ml 3 Ml Vial) 0 unit SUBCUT QIDACHS [facility]; Protocol Last Admin: 12/26/21 13:37 Dose: Not Given Documented by: STEPHANIE Non-Admin Reason: No Insulin Coverage Isosorbide Mononitrate (Isosorbide Mononitrate 30 Mg Tab.Er.24h) 30 mg PO DAILY [facility]; Protocol Last Admin: 12/26/21 10:47 Dose: 30 mg Documented by: STEPHANIE Lisinopril (Lisinopril 20 Mg Tablet) 20 mg PO DAILY [facility]; Protocol Last Admin: 12/26/21 08:50 Dose: Not Given Documented by: STEPHANIE Non-Admin Reason: Physician Held Med Ondansetron HCl (Ondansetron Hcl 4 Mg/2 Ml Vial) 4 mg IVPUSH Q8H PRN PRN Reason: Nausea and Vomiting Pharmacy Consult (Consult Rx Perform Med Rec) 1 each MISCELLANE ONCE PRN PRN Reason: Consult order Sodium Chloride (0.9 % Sodium Chloride Flush 3 Ml Syringe) 3 ml IVFLUSH QSHIFT [facility] Last Admin: 12/26/21 10:45 Dose: 3 ml Documented by: STEPHANIE Labs CBC & Chem 7: 12/26/21 03:47 12/26/21 03:47 Labs: Laboratory Results - last 24 hr 12/25/21 12/25/21 12/26/21 15:07 17:43 03:47 MCV 83.7 MCH 26.9 L MCHC 32.1 RDW 12.9 Plt Count 170 MPV 11.8 Immature Gran % (Auto) 0.4 Neut % (Auto) 67.3 Lymph % (Auto) 23.5 [place] % (Auto) 6.1 Eos % (Auto) 2.3 Baso % (Auto) 0.4 Lymph # (Auto) 2.1 [place] # (Auto) 0.6 Eos # (Auto) 0.2 Baso # (Auto) 0.0 Abs Immat Gran (auto) 0.04 H Absolute Neuts (auto) 6.1 Absolute Nucleated RBC 0.000 Nucleated RBC % (auto) 0.0 Smear Tech's Comments VERIFIED Anion Gap Estim Creat Clear Calc Estimated GFR POC Glucose Random Glucose Calcium Iron TIBC % Saturation Unsat Iron Binding Ferritin Troponin I High Sens 64.6 H* Vitamin B12 Folate 12/26/21 12/26/21 12/26/21 03:47 03:47 07:35 MCV MCH MCHC RDW Plt Count MPV Immature Gran % (Auto) Neut % (Auto) Lymph % (Auto) [place] % (Auto) Eos % (Auto) Baso % (Auto) Lymph # (Auto) [place] # (Auto) Eos # (Auto) Baso # (Auto) Abs Immat Gran (auto) Absolute Neuts (auto) Absolute Nucleated RBC Nucleated RBC % (auto) Smear Tech's Comments Anion Gap 15 Estim Creat Clear Calc 29.3 Estimated GFR 24 POC Glucose 93 Random Glucose 85 Calcium 9.0 Iron 33 TIBC 248 % Saturation 13 L Unsat Iron Binding 215 Ferritin 125 Troponin I High Sens Vitamin B12 389 Folate 15.7 12/26/21 13:29 MCV MCH MCHC RDW Plt Count MPV Immature Gran % (Auto) Neut % (Auto) Lymph % (Auto) [place] % (Auto) Eos % (Auto) Baso % (Auto) Lymph # (Auto) [place] # (Auto) Eos # (Auto) Baso # (Auto) Abs Immat Gran (auto) Absolute Neuts (auto) Absolute Nucleated RBC Nucleated RBC % (auto) Smear Tech's Comments Anion Gap Estim Creat Clear Calc Estimated GFR POC Glucose 150 H Random Glucose Calcium Iron TIBC % Saturation Unsat Iron Binding Ferritin Troponin I High Sens Vitamin B12 Folate Assessment and Plan (1) Acute congestive heart failure: Status: Acute (2) Normocytic anemia: Status: Acute (3) MARIA ESTHER (acute kidney injury): Status: Acute Plan 56-year-old female past medical history of CAD, hypertension, diabetes presents to the hospital with complaints of shortness of breath as well as decreased urine output 1. acute CHF exacerbation-chf etiology unclera -echo pending -? appears to be new onset, still symptomatic -? unclear exacerbating factors but patient has had? hypertensive crisis and reports chronic unclear shoulder hypertension adjusted to IV Lasix drip ,? strict I&O, daily weight,? and low-sodium diet -? will obtain echocardiogram, renal dupplex r/o renal art stensis -? cardiology consulted 2.? elevated troponin thought to be-? likely multifactorial in the setting of acute CHF as well as hypertension -? denies any chest pain -? EKG shows marked? T-wave abnormalities, patient was discussed with Cardiology, felt to be? type 2, - will monitor on telemetry 3.? MARIA ESTHER /also ahs chf -? treating with IV Lasix,renal dupplex r/o renal art stensis -? follow BMP 4.? normocytic anemia -? no evidence of acute GI bleed -? denies any melena, or hemoptysis or hematemesis or hematochezia -? will obtain stool occult, B12, folic acid, and ferritin 5.? hypertension -? elevated -? will resume home medication 6.? CAD - no chest pain -? troponins above -? continue aspirin, carvedilol, 7.? diabetes -? continue home insulin -? diabetic diet -? low-dose sliding scale insulin ?DVT prophylaxis:? Heparin subQ need for inatpient: chf -iv diuretics Quality Stroke Does the patient have a stroke diagnosis?: No VTE Prior VTE?: No VTE Risk Level:: Medical - moderate - high VTE Device Contraindication: Treatment Not Indicated VTE Drug Contraindication: N/A - Med Ordered
--- NOTE | 2021-12-26 17:00 | P.CONNP_ITS ---
History of Present Illness Reason for Consult Consult date: 12/26/21 Reason for consult: MARIA ESTHER on CKD Chief Complaint Chief complaint: SOB History of Present Illness Narrative: Awa is dutch speaking only and most of hx obtained from speaking with Hospitalist, Dr. Brown. Awa presented with SOB at rest without chest pain -she also had orthopnea. The SOB has been subacute in onset. She presented with accelerated HTN as well with SBP in the 200s. She is on a multidrug regimen of antihypertensives as an outpt. We are asked to see her for elevated creat 2.4 which has improved somewhat with diuresis overnight to 2.1. She has type II DM., hx of HTN and CAD. Will review records from [facility] to obtain baseline serum creat, but suspect CKD. Review of Systems Review of Systems patient is significantly short of breath with sitting, denies any chest pain or nausea or vomiting or abdominal pain. Yes all other systems are reviewed and are negative Constitutional: Reports no additional constitutional complaints, Denies body ache(s), Denies chills, Denies fever(s), Denies headache(s) and Denies weakness Eyes: Reports no additional eye complaints and Denies change in vision Reports system reviewed and no additional complaints, except as documented, Denies dizziness, Denies headache(s), Denies nasal congestion, Denies nasal discharge and Denies neck pain Cardiovascular: Reports no additional cardiovascular complaints, Denies chest pain, Denies chest pain with activity, Denies leg edema, Denies lightheadedness, Denies Loss of Consciousness, Denies palpitations, Denies dyspnea, Reports dyspnea on exertion and Reports orthopnea Respiratory: Reports no additional respiratory complaints, Reports cough, Denies dyspnea and Reports dyspnea on exertion Gastrointestinal: Reports no additional gastrointestinal complaints, Denies abdominal pain, Denies diarrhea, Denies nausea and Denies vomiting Musculoskeletal: Reports no additional musculoskeletal complaints, Denies back p ain, Denies arthralgias, Denies joint swelling, Denies neck pain, Denies numbness and Denies tingling Skin/Breast: Reports system reviewed and no additional complaints, except as docu and Denies rash Reports system reviewed and no additional complaints, except as documented, Denies Abnormal speech present, Denies dizziness, Denies headache(s), Denies numbness, Denies tingling and Denies weakness Psychiatric: Reports no additional psychiatric complaints Endocrine: Reports no additional endocrine complaints and Denies palpitations Hematologic/Lymphatic: Reports no additional hematologic/lymphatic complaints Allergic/Immunologic: Reports no additional allergic/immunologic complaints [facility] Past Medical History Medical History CAD (coronary artery disease) Diabetes Hypertension Family History Family History Other No family history of coronary artery disease Surgical History Surgical History No pertinent past surgical history Social History Social History Patient Tobacco Use Status: Never used Tobacco Use of substances other than those prescribed or required for medical reasons: No Advance Directives: No Advance Directives Information Provided: No service: No Current occupational status: unemployed Meds Allergies Allergy/AdvReac Type Severity Reaction Status Date / Time Unable to Assess Allergy Verified 12/25/21 13:51 Active Medications: Current Medications Acetaminophen (Acetaminophen 325 Mg Tablet) 650 mg PO Q6H PRN PRN Reason: Pain, Mild (Pain Scale 1-3) Amlodipine Besylate (Amlodipine Besylate 10 Mg Tablet) 10 mg PO DAILY [facility]; Protocol Last Admin: 12/26/21 10:47 Dose: 10 mg Documented by: Aspirin (Aspirin Enteric Coated 81 Mg Tablet.) 81 mg PO DAILY [facility] Last Admin: 12/26/21 10:47 Dose: 81 mg Documented by: Atorvastatin Calcium (Atorvastatin Calcium 40 Mg Tablet) 40 mg PO DAILY [facility] Last Admin: 12/26/21 10:47 Dose: 40 mg Documented by: Carvedilol (Carvedilol 25 Mg Tablet) 25 mg PO BID [facility]; Protocol Last Admin: 12/26/21 10:47 Dose: 25 mg Documented by: Dextrose (Dextrose 50 % 25 Gm/50 Ml Syringe) 25 gm IVPUSH Q15M PRN; Protocol PRN Reason: per Hypoglycemia Standing Ord. Docusate Sodium (Docusate Sodium 100 Mg Capsule) 100 mg PO DAILY PRN PRN Reason: Constipation Enoxaparin Sodium (Enoxaparin Sodium 40 Mg/0.4 Ml Syringe) 40 mg SUBCUT Q24H [facility] Last Admin: 12/25/21 20:05 Dose: 40 mg Documented by: Glucose (Glucose Gel 15 Gm Gel..Gram.) 15 gm PO Q15M PRN; Protocol PRN Reason: per Hypoglycemia Standing Ord. Furosemide 200 mg/ Sodium (Chloride) 100 mls @ 5 mls/hr IVCONT .Q20H [facility] Last Admin: 12/26/21 12:53 Dose: 10 mg/hr, 5 mls/hr Documented by: Insulin Glargine (Insulin Glargine,Hum.Rec.Anlog 100 Unit/Ml 10 Ml Vial) 14 u nit SUBCUT DAILY@1000 [facility] Last Admin: 12/26/21 10:45 Dose: 14 unit Documented by: Insulin Human Lispro (Insulin Lispro 100 Unit/Ml 3 Ml Vial) 0 unit SUBCUT QIDACHS [facility]; Protocol Last Admin: 12/26/21 13:37 Dose: Not Given Documented by: Isosorbide Mononitrate (Isosorbide Mononitrate 30 Mg Tab.Er.24h) 30 mg PO DAILY [facility]; Protocol Last Admin: 12/26/21 10:47 Dose: 30 mg Documented by: Lisinopril (Lisinopril 20 Mg Tablet) 20 mg PO DAILY [facility]; Protocol Last Admin: 12/26/21 08:50 Dose: Not Given Documented by: Ondansetron HCl (Ondansetron Hcl 4 Mg/2 Ml Vial) 4 mg IVPUSH Q8H PRN PRN Reason: Nausea and Vomiting Pharmacy Consult (Consult Rx Perform Med Rec) 1 each MISCELLANE ONCE PRN PRN Reason: Consult order Sodium Chloride (0.9 % Sodium Chloride Flush 3 Ml Syringe) 3 ml IVFLUSH QSHIFT [facility] Last Admin: 12/26/21 10:45 Dose: 3 ml Documented by: Home Medications Medication Instructions Recorded Confirmed Last Taken Type amlodipine 10 mg tablet 1 tab PO DAILY 12/25/21 12/25/21 12/25/21 History aspirin 81 mg tablet,delayed 1 tab PO DAILY 12/25/21 12/25/21 12/25/21 History release atorvastatin 40 mg tablet 1 tab PO DAILY 12/25/21 12/25/21 12/25/21 History carvedilol 25 mg tablet 1 tab PO BID 12/25/21 12/25/21 12/25/21 History hydrochlorothiazide 12.5 mg capsule 1 cap PO QAM 12/25/21 12/25/2122 History insulin human U-100 NPH-regulr 25 unit SUBCUT DAILY@1000 12/25/21 12/25/21 12/25/21 History 70-30 mix 100 unit/mL subcutaneous susp (Humulin 70/30 U-100 Insulin) isosorbide mononitrate 30 mg 1 tab PO QAM 12/25/21 12/25/21 12/25/21 History tablet,extended release 24 hr lisinopril 20 mg tablet 1 tab PO DAILY 12/25/21 12/25/21 12/25/21 History Physical Exam Vital Signs: Last Vital Signs Temp 97.8 F 12/25/21 18:25 Pulse 70 12/26/21 12:37 Resp 20 12/26/21 12:37 BP 167/73 H 12/26/21 12:37 Pulse Ox 93 12/26/21 12:37 BMI result Body Mass Index 29.4 Const General: cooperative, healthy appearing, comfortable, no acute distress, alert, awake and in distress moderate and respiratory Nutritional Appearance: overweight Orientation/consciousness: patient oriented x3 Limitations: no limitations HEENT Head: Yes normal to inspection, Yes normocephalic and Yes atraumatic Ears: hearing grossly normal bilaterally General nose exam: Normal external nose present Face and sinus: Yes normal facial exam Mouth: Normal oral and palatal mucosa present Throat: Yes posterior oropharynx normal Eyes General: appearance normal, both eyes and all related structures Pupils: Equal, round and reactive pupils present Neck Neck: Yes normal visual inspection, Yes trachea midline, Yes supple and Yes JVD Chest Chest palpation & inspection: normal inspection of the chest Resp Other: no respiratory distress, some rhonchi in the basilar regions Effort & Inspection: normal respiratory effort Auscultation: clear to auscultation bilaterally and rales bilateral 1/[address] up Cardio Jugular venous distension: JVD Palpation: normal PMI Rate: regular rate Rhythm: regular rhythm Heart sounds: S1 normal heart sound present, S2 normal heart sound present, no click, no gallops, no murmurs and no rubs Peripheral pulses: Peripheral pulses 2+ throughout GI Inspection: Yes normal to inspection Palpation (GI): Soft to palpation and nontender Auscultation: normal bowel sounds General: Yes no CVA tenderness Back/Spine/Pelvis Back: no CVA tenderness Thoracic/Lumbar Spine: thoracic and lumbar spine normal to inspection Skin General skin exam: no rashes or lesions noted Neuro General: patient oriented x3, no focal motor deficits and normal sensation to monofilament Cranial nerves: Yes Equal, round and reactive pupils present Cognition (Neuro): normal cognition Speech: No Abnormal speech present Gait exam (Neuro): Normal gait present Motor exam (neuro): 5/5 motor strength present throughout Extrem Other: I don't appreciate any swelling General: Yes normal to inspection, Yes no pedal edema, Yes no calf tenderness, No clubbing, No cyanosis and Yes edema Results Lab Results Result Diagrams: 12/26/21 03:47 12/26/21 03:47 Lab results: Chemistry 12/25/21 12/26/21 15:07 03:47 Sodium 139 140 Potassium 5.2 H 4.4 Carbon Dioxide 17 L 16 L BUN 51 H 49 H Creatinine 2.46 H 2.16 H Calcium 8.9 9.0 Hematology 12/25/21 12/26/21 15:07 03:47 WBC 7.6 9.1 Hgb 8.7 L 8.9 L Plt Count TNP 170 Urinalysis 12/25/21 14:58 Urine Color YELLOW Urine Appearance CLEAR Urine pH 5.5 Ur Specific [place] 1.025 Urine Protein 2+ H Urine Glucose (UA) NEG Urine Ketones NEG Urine Blood TRACE Urine Nitrite NEG Ur Leukocyte Esterase NEG Urine RBC 0-2 Urine WBC 0-2 Ur Squamous Epith Cells 1+ Assessment and Plan (1) Normocytic anemia: Status: Acute (2) MARIA ESTHER (acute kidney injury): Status: Acute (3) CKD (chronic kidney disease) stage 3, GFR 30-59 ml/min: Status: Acute (4) CHF (congestive heart failure): Status: Acute Plan 56-year-old female past medical history of longstanding DM, resistant and poorly controlled HTN, CKD with proteinuria presents with sob, decompensated CHF. She is much more comfortable after 1 day on lasix drip and no longer requring oxygen. She was very hypertensive on presentation which is somewhat better now. 1. MARIA ESTHER on CKD: likely CRS, improving with diuresis 2. 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 Agree with obtaining renal artery doppler; would also check up/creat, serologies to rule out paraprotein given anemia: SPEP and IF and C3 and C4 complements. UA not nephritic 3. Anemia: see above, also check iron studies and -as iron is low, give IV iron while here and consider MACEY once irone replete 4. HTN_would continue TELMA I as she is tolerating diuresis well and creat has improved: titrate upward to max as tolerated; continue beta-jacinta and nitrates; consider hydralazine Procedures Date of Service Date of Service: 12/26/21
[2021-12-26 17:26] VITALS: PULSE 58; RESP 18
[2021-12-26 18:17] LABS: Glucose, Whole Blood 151 mg/dL (60-115)
[2021-12-26] MEDS: Insulin Lispro 100 UNIT/ML 3 ML VIAL SUBCUT ×2 (18:25→21:04)
[2021-12-26 20:00] VITALS: BP 152/70; PULSE 62; RESP 20; TEMP 36.6; O2SAT 97
[2021-12-26 20:47] LABS: Glucose, Whole Blood 168 mg/dL (60-115)
--- NOTE | 2021-12-26 21:13 | PC.NURSE ---
patient a&o, cardiac cath technician intact nsr 60s, poc obtained, pt medicated per order, lasix drip running per order, pt medicated per order, call verma within reach, will continue to monitor.
[2021-12-26 23:22] VITALS: BP 152/72; PULSE 57; RESP 19; TEMP 36.8; O2SAT 97
[2021-12-27] VITALS (7 sets, daily range): BP systolic 119–188; BP diastolic 55–83; PULSE 55–63; RESP 18–20; TEMP 36.6–37.4; O2SAT 93–98; BMI 31.1
--- NOTE | 2021-12-27 01:58 | PC.NURSE ---
Addendum entered by Daisy Simpson RN 12/27/21 03:19: Patient ambulated to bathroom supervised, voided 900 mls pale yellow urine. Original Note: Patient alert and oriented, burmese speaking. Ambulated to bathroom supervised with steady gait, denies sob at this time. Patient denies pain or discomfort, vss on room air.
--- NOTE | 2021-12-27 04:49 | PC.NURSE ---
Patient transported to [facility] room 468 with pt belongings and on the monitor, transported by RN.
[2021-12-27] MEDS: Furosemide 200 MG in 0.9 % Sodium Chloride 80 ML IVCONT (05:16)
[2021-12-27 07:09] LABS: Anion Gap 15 (12-20); B Type Natriuretic Peptide 1089 pg/mL (<100); Blood Urea Nitrogen 50 mg/dL (9-16); Calcium 9.1 mg/dL (8.4-10.2); Carbon Dioxide 21 mmol/L (22-29); Chloride 108 mmol/L (96-108); Creatinine Clr Calc Pharmacy 28.9; Estimated Glomerular Filt Rate 22; Glucose Random 99 mg/dL (60-115); Potassium 4.5 mmol/L (3.3-5.1); Sodium 139 mmol/L (135-145)
[2021-12-27 07:29] LABS: Glucose, Whole Blood 94 mg/dL (60-115)
[2021-12-27] MEDS: Insulin Glargine,Hum.rec.anlog 100 UNIT/ML 10 ML VIAL 14 UNIT SUBCUT (09:23)
[2021-12-27] MEDS: 0.9 % Sodium Chloride Flush 3 ML SYRINGE IVFLUSH ×2 (09:24→21:06)
[2021-12-27] MEDS: amLODIPine Besylate 10 MG TABLET PO (09:25)
[2021-12-27] MEDS: Aspirin Enteric Coated 81 MG TABLET.DR PO (09:25)
[2021-12-27] MEDS: lisinopriL 20 MG TABLET PO (09:25)
[2021-12-27] MEDS: Isosorbide Mononitrate 30 MG TAB.ER.24H PO (09:25)
[2021-12-27] MEDS: carvediloL 25 MG TABLET PO ×2 (09:25→21:05)
[2021-12-27] MEDS: Atorvastatin Calcium 40 MG TABLET PO (09:25)
[2021-12-27 11:06] LABS: Glucose, Whole Blood 191 mg/dL (60-115)
--- NOTE | 2021-12-27 11:38 | HO.PM.IMPN ---
Subjective Subjective Date of Service: 12/27/21 Interval History: chf excerbation Review of Systems sob improving, but still talking in short sentences, [place] breath with exertion. denies cough or fever Physical Exam Vital Signs: Vital Signs: Last Vital Signs Temp 97.8 F 12/27/21 11:01 Pulse 58 12/27/21 11:01 Resp 18 12/27/21 11:01 BP 151/65 H 12/27/21 11:01 Pulse Ox 98 12/27/21 11:01 BMI result Body Mass Index 31.1 Appearance: Alert.? Oriented X3.?sob , talks in short sentences. Eyes: Pupils equal, round and reactive to light.? Sclera nonicteric.? ENT: Pharynx normal.? Moist mucous membranes. cvs: rrr, [id number] , jvd present. res: clear to auscultation ,no rhonchii or wheezing abd: no rebound or guarding ,nt, bs present. ext pulses present , no cyanosis ,has edema neuro: axo3 , nonfocal. Objective Data Active Medications Acetaminophen (Acetaminophen 325 Mg Tablet) 650 mg PO Q6H PRN PRN Reason: Pain, Mild (Pain Scale 1-3) Amlodipine Besylate (Amlodipine Besylate 10 Mg Tablet) 10 mg PO DAILY [facility]; Protocol Last Admin: 12/27/21 09:25 Dose: 10 mg Documented by: CASSIUS Aspirin (Aspirin Enteric Coated 81 Mg Tablet.) 81 mg PO DAILY [facility] Last Admin: 12/27/21 09:25 Dose: 81 mg Documented by: CASSIUS Atorvastatin Calcium (Atorvastatin Calcium 40 Mg Tablet) 40 mg PO DAILY [facility] Last Admin: 12/27/21 09:25 Dose: 40 mg Documented by: CASSIUS Carvedilol (Carvedilol 25 Mg Tablet) 25 mg PO BID [facility]; Protocol Last Admin: 12/27/21 09:25 Dose: 25 mg Documented by: CASSIUS Dextrose (Dextrose 50 % 25 Gm/50 Ml Syringe) 25 gm IVPUSH Q15M PRN; Protocol PRN Reason: per Hypoglycemia Standing Ord. Docusate Sodium (Docusate Sodium 100 Mg Capsule) 100 mg PO DAILY PRN PRN Reason: Constipation Enoxaparin Sodium (Enoxaparin Sodium 40 Mg/0.4 Ml Syringe) 40 mg SUBCUT Q24H [facility] Last Admin: 12/25/21 20:05 Dose: 40 mg Documented by: KIERSTEN Glucose (Glucose Gel 15 Gm Gel..Gram.) 15 gm PO Q15M PRN; Protocol PRN Reason: per Hypoglycemia Standing Ord. Furosemide 200 mg/ Sodium (Chloride) 100 mls @ 5 mls/hr IVCONT .Q20H [facility] Last Admin: 12/27/21 05:16 Dose: 10 mg/hr, 5 mls/hr Documented by: NOÉ Insulin Glargine (Insulin Glargine,Hum.Rec.Anlog 100 Unit/Ml 10 Ml Vial) 14 unit SUBCUT DAILY@1000 [facility] Last Admin: 12/27/21 09:23 Dose: 14 unit Documented by: CASSIUS Insulin Human Lispro (Insulin Lispro 100 Unit/Ml 3 Ml Vial) 0 unit SUBCUT QIDACHS [facility]; Protocol Last Admin: 12/27/21 07:35 Dose: Not Given Documented by: CASSIUS Non-Admin Reason: No Insulin Coverage Isosorbide Mononitrate (Isosorbide Mononitrate 30 Mg Tab.Er.24h) 30 mg PO DAILY [facility]; Protocol Last Admin: 12/27/21 09:25 Dose: 30 mg Documented by: CASSIUS Lisinopril (Lisinopril 20 Mg Tablet) 20 mg PO DAILY [facility]; Protocol Last Admin: 12/27/21 09:25 Dose: 20 mg Documented by: CASSIUS Ondansetron HCl (Ondansetron Hcl 4 Mg/2 Ml Vial) 4 mg IVPUSH Q8H PRN PRN Reason: Nausea and Vomiting Pharmacy Consult (Consult Rx Perform Med Rec) 1 each MISCELLANE ONCE PRN PRN Reason: Consult order Sodium Chloride (0.9 % Sodium Chloride Flush 3 Ml Syringe) 3 ml IVFLUSH QSHIFT [facility] Last Admin: 12/27/21 09:24 Dose: 3 ml Documented by: CASSIUS Labs CBC & Chem 7: 12/26/21 03:47 12/27/21 06:33 Labs: Laboratory Results - last 24 hr 12/26/21 12/26/21 12/26/21 03:47 13:29 18:13 Anion Gap Estim Creat Clear Calc Estimated GFR POC Glucose 150 H 151 H Random Glucose Calcium B-Natriuretic Peptide Vitamin B12 389 Folate 15.7 12/26/21 12/27/21 12/27/21 20:44 06:33 06:33 Anion Gap 15 Estim Creat Clear Calc 28.9 Estimated GFR 22 POC Glucose 168 H Random Glucose 99 Calcium 9.1 B-Natriuretic Peptide 1089 H Vitamin B12 Folate 12/27/21 12/27/21 07:21 11:00 Anion Gap Estim Creat Clear Calc Estimated GFR POC Glucose 94 191 H Random Glucose Calcium B-Natriuretic Peptide Vitamin B12 Folate Assessment and Plan (1) MARIA ESTHER (acute kidney injury): Status: Acute (2) CKD (chronic kidney disease) stage 3, GFR 30-59 ml/min: Status: Acute (3) Acute congestive heart failure: Status: Acute Plan 56-year-old female past medical history of CAD, hypertension, diabetes presents to the hospital with complaints of shortness of breath as well as decreased urine output 1. acute CHF exacerbation-chf etiology unclera -echo pending -? appears to be new onset, still symptomatic -? unclear exacerbating factors but patient has had? hypertensive crisis and reports chronic unclear shoulder hypertension continue ? IV Lasix drip ,? strict I&O, daily weight,? and low-sodium diet -? will obtain echocardiogram, renal dupplex r/o renal art stensis -? cardiology consulted 2.? elevated troponin thought to be-? likely multifactorial in the setting of acute CHF as well as hypertension -? denies any chest pain -? EKG shows marked? T-wave abnormalities, patient was discussed with Cardiology, felt to be? type 2, - will monitor on telemetry 3.? MARIA ESTHER on ckd -? treating with IV Lasix,renal dupplex r/o renal art stensis -? follow BMP 4.? normocytic anemia -? no evidence of acute GI bleed -? denies any melena, or hemoptysis or hematemesis or hematochezia B12 and folate fine, iron studies normal except ferritin low, occult blood will be sent stool of available 5.? hypertension -? elevated -? will resume home medication 6.? CAD - no chest pain -? troponins above -? continue aspirin, carvedilol, 7.? diabetes: fingerstick fluctuating between 100-170 range. Adjusted home insulin -? diabetic diet -? low-dose sliding scale insulin ?DVT prophylaxis:? Heparin subQ need for inatpient: chf -iv diuretics Quality Stroke Does the patient have a stroke diagnosis?: No VTE Prior VTE?: No VTE Risk Level:: Medical - moderate - high VTE Device Contraindication: Treatment Not Indicated VTE Drug Contraindication: N/A - Med Ordered
[2021-12-27] MEDS: Insulin Lispro 100 UNIT/ML 3 ML VIAL SUBCUT ×2 (12:16→21:06)
--- NOTE | 2021-12-27 12:31 | P.PNNP_ITS ---
Subjective Subjective Date of Service: 12/27/21 Interval history: Events noted; All recent data reviewed; D/W hospitalist Physical Exam Vital Signs: Vital Signs: Last Vital Signs Temp 97.8 F 12/27/21 11:01 Pulse 58 12/27/21 11:01 Resp 18 12/27/21 11:01 BP 151/65 H 12/27/21 11:01 Pulse Ox 98 12/27/21 11:01 BMI result Body Mass Index 31.1 Const: General: no acute distress Eyes: EOM: EOMs intact bilaterally Resp: Auscultation: diminished lung sounds Cardio: Rate: regular rate GI: Palpation (GI): Soft to palpation Neuro: General: moves all extremities Objective Data Labs CBC & Chem 7: 12/26/21 03:47 12/27/21 06:33 Labs: Laboratory Results - last 24 hr 12/26/21 12/26/21 12/26/21 03:47 13:29 18:13 Sodium Potassium Chloride Carbon Dioxide Anion Gap BUN Creatinine Estim Creat Clear Calc Estimated GFR POC Glucose 150 H 151 H Random Glucose Calcium B-Natriuretic Peptide Vitamin B12 389 Folate 15.7 12/26/21 12/27/21 12/27/21 20:44 06:33 06:33 Sodium 139 Potassium 4.5 Chloride 108 Carbon Dioxide 21 L Anion Gap 15 BUN 50 H Creatinine 2.25 H Estim Creat Clear Calc 28.9 Estimated GFR 22 POC Glucose 168 H Random Glucose 99 Calcium 9.1 B-Natriuretic Peptide 1089 H Vitamin B12 Folate 12/27/21 12/27/21 07:21 11:00 Sodium Potassium Chloride Carbon Dioxide Anion Gap BUN Creatinine Estim Creat Clear Calc Estimated GFR POC Glucose 94 191 H Random Glucose Calcium B-Natriuretic Peptide Vitamin B12 Folate Procedures Date of Service Date of Service: 12/27/21 Assessment & Plan Assessment and plan (1) MARIA ESTHER (acute kidney injury): Status: Acute Assessment and Plan: 56-year-old female past medical history of longstanding DM, resistant and poorly controlled HTN, CKD with proteinuria presents with sob, decompensated CHF. 1. MARIA ESTHER on CKD: likely CRS, improving with diuresis 2. CKD, proteinuric in a type II diabetic with resistant HTN: ddx includes leonie betic kidney disease, other GN such as FSGS or possibley nephrosclerosis and/or ischemic renal disease. would also check up/creat, serologies to rule out paraprotein given anemia: SPEP and IF and C3 and C4 complements. UA not nephritic 3. HTN_would hold TELMA I . continue beta-jacinta and nitrates; consider hydralazine if BP goes up Time Spent With Patient Time: Total time spent is greater than 50% in coordination of care (as documented) at patient's floor/unit and/or counseling patient: Progress Note: Quality Stroke Does the patient have a stroke diagnosis?: No
--- NOTE | 2021-12-27 13:34 | P.PNCA_ITS ---
Subjective Subjective Date of Service: 12/27/21 Interval history: Feeling better, no CP or SOB. Physical Exam Vital Signs: Last Vital Signs Temp 97.8 F 12/27/21 11:01 Pulse 58 12/27/21 11:01 Resp 18 12/27/21 11:01 BP 151/65 H 12/27/21 11:01 Pulse Ox 98 12/27/21 11:01 BMI result Body Mass Index 31.1 GENERAL APPEARANCE: in no acute distress, pleasant. NECK: no carotid bruit, Mild jugular venous distention. SKIN: no suspicious lesions, warm and dry. HEART: no murmurs, regular rate and rhythm. LUNGS: clear to auscultation bilaterally. ABDOMEN: soft, nontender. EXTREMITIES: no edema. PERIPHERAL PULSES: equal. NEUROLOGIC: No gross deficits, AAO X 3 Objective Labs and Meds Result diagrams: 12/26/21 03:47 12/27/21 06:33 Lab results: Laboratory Results - last 24 hr 12/26/21 12/26/21 12/26/21 03:47 13:29 18:13 Sodium Potassium Chloride Carbon Dioxide Anion Gap BUN Creatinine Estim Creat Clear Calc Estimated GFR POC Glucose 150 H 151 H Random Glucose Calcium B-Natriuretic Peptide Vitamin B12 389 Folate 15.7 12/26/21 12/27/21 12/27/21 20:44 06:33 06:33 Sodium 139 Potassium 4.5 Chloride 108 Carbon Dioxide 21 L Anion Gap 15 BUN 50 H Creatinine 2.25 H Estim Creat Clear Calc 28.9 Estimated GFR 22 POC Glucose 168 H Random Glucose 99 Calcium 9.1 B-Natriuretic Peptide 1089 H Vitamin B12 Folate 12/27/21 12/27/21 07:21 11:00 Sodium Potassium Chloride Carbon Dioxide Anion Gap BUN Creatinine Estim Creat Clear Calc Estimated GFR POC Glucose 94 191 H Random Glucose Calcium B-Natriuretic Peptide Vitamin B12 Folate Progress Note: A&P Assessment and plan (1) CKD (chronic kidney disease) stage 3, GFR 30-59 ml/min: Status: Acute (2) Acute congestive heart failure: Status: Acute Plan pleasant 56-year-old female who is here for congestive heart failure i n setting of elevated blood pressures. She has background of chronic kidney disease also. Overall volume status is improving and I think potentially can be changed to oral diuretics tomorrow. Blood pressure continues to be elevated. I think lisinopril should be titrated to 40 mg daily. If blood pressure continues to be elevated then we may need to add hydralazine. We will get echocardiogram and review it and if there is any cardiomyopathy or concern for underlying coronary disease then we will pursue ischemic evaluation inpatient. Otherwise potentially will do stress testing as outpatient as a blood pressure improves. Continue aspirin and atorvastatin given her background history of coronary disease and previous reported stress in [place] and [place]. Thank you for allowing me to participate in the care of your patient. Please feel free to contact me if you have any questions. Fall Risk Details Current Medications: Current Medications Acetaminophen (Acetaminophen 325 Mg Tablet) 650 mg PO Q6H PRN PRN Reason: Pain, Mild (Pain Scale 1-3) Amlodipine Besylate (Amlodipine Besylate 10 Mg Tablet) 10 mg PO DAILY REPLACED BY [facility]; Protocol Last Admin: 12/27/21 09:25 Dose: 10 mg Documented by: Aspirin (Aspirin Enteric Coated 81 Mg Tablet.) 81 mg PO DAILY REPLACED BY [facility] Last Admin: 12/27/21 09:25 Dose: 81 mg Documented by: Atorvastatin Calcium (Atorvastatin Calcium 40 Mg Tablet) 40 mg PO DAILY REPLACED BY [facility] Last Admin: 12/27/21 09:25 Dose: 40 mg Documented by: Carvedilol (Carvedilol 25 Mg Tablet) 25 mg PO BID REPLACED BY [facility]; Protocol Last Admin: 12/27/21 09:25 Dose: 25 mg Documented by: Dextrose (Dextrose 50 % 25 Gm/50 Ml Syringe) 25 gm IVPUSH Q15M PRN; Protocol PRN Reason: per Hypoglycemia Standing Ord. Docusate Sodium (Docusate Sodium 100 Mg Capsule) 100 mg PO DAILY PRN PRN Reason: Constipation Enoxaparin Sodium (Enoxaparin Sodium 40 Mg/0.4 Ml Syringe) 40 mg SUBCUT Q24H REPLACED BY [facility] Last Admin: 12/25/21 20:05 Dose: 40 mg Documented by: Glucose (Glucose Gel 15 Gm Gel..Gram.) 15 gm PO Q15M PRN; Protocol PRN Reason: per Hypoglycemia Standing Ord. Furosemide 200 mg/ Sodium (Chloride) 100 mls @ 5 mls/hr IVCONT .Q20H REPLACED BY [facility] Last Admin: 12/27/21 05:16 Dose: 10 mg/hr, 5 mls/hr Documented by: Insulin Glargine (Insulin Glargine,Hum.Rec.Anlog 100 Unit/Ml 10 Ml Vial) 14 unit SUBCUT DAILY@1000 REPLACED BY [facility] Last Admin: 12/27/21 09:23 Dose: 14 unit Documented by: Insulin Human Lispro (Insulin Lispro 100 Unit/Ml 3 Ml Vial) 0 unit SUBCUT QIDACHS REPLACED BY [facility]; Protocol Last Admin: 12/27/21 12:16 Dose: 2 unit Documented by: Isosorbide Mononitrate (Isosorbide Mononitrate 30 Mg Tab.Er.24h) 30 mg PO DAILY REPLACED BY [facility]; Protocol Last Admin: 12/27/21 09:25 Dose: 30 mg Documented by: Lisinopril (Lisinopril 20 Mg Tablet) 20 mg PO DAILY REPLACED BY [facility]; Protocol Last Admin: 12/27/21 09:25 Dose: 20 mg Documented by: Ondansetron HCl (Ondansetron Hcl 4 Mg/2 Ml Vial) 4 mg IVPUSH Q8H PRN PRN Reason: Nausea and Vomiting Pharmacy Consult (Consult Rx Perform Med Rec) 1 each MISCELLANE ONCE PRN PRN Reason: Consult order Sodium Chloride (0.9 % Sodium Chloride Flush 3 Ml Syringe) 3 ml IVFLUSH QSHIFT REPLACED BY [facility] Last Admin: 12/27/21 09:24 Dose: 3 ml Documented by: Time Spent With Patient Time: Total time spent is greater than 50% in coordination of care (as documented) at patient's floor/unit and/or counseling patient: Progress Note: Quality Stroke Does the patient have a stroke diagnosis?: No Procedures Date of Service Date of Service: 12/27/21
--- NOTE | 2021-12-27 13:39 | MHC.CM.PN ---
per rounds pt is on a lasix drip ,severe chf
[2021-12-27 16:21] LABS: Glucose, Whole Blood 104 mg/dL (60-115)
[2021-12-27 20:34] LABS: Glucose, Whole Blood 244 mg/dL (60-115)
[2021-12-28] MEDS: Furosemide 200 MG in 0.9 % Sodium Chloride 80 ML IVCONT ×2 (01:36→21:01)
[2021-12-28 03:11] VITALS: BP 136/62; PULSE 56; RESP 18; TEMP 36.8; O2SAT 98
[2021-12-28 06:00] VITALS: BMI 31.4
[2021-12-28 06:49] LABS: Hematocrit 27.3 % (37.0-47.0)
--- NOTE | 2021-12-28 07:00 | CA_ITS ---
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 There is severely increased left ventricular wall thickness. The left ventricular systolic function is low normal. The visually estimated ejection fraction is between 50-55%. - Cannot rule out basal inferior wall motion abnormality. - Normal right ventricular cavity size and systolic function. - The left atrium is moderately dilated. Findings Left Ventricle Normal left ventricular cavity size. There is severely increased left ventricular wall thickness. The left ventricular systolic function is low normal. The visually estimated ejection fraction is between 50-55%. Abnormal diastolic function is noted. Spectral Doppler is indicative of a pseudonormal filling pattern. E/E prime ratio is >15, consistent with elevated filling pressures. Cannot rule out basal inferior wall motion abnormality. Right Ventricle Normal right ventricular cavity size and systolic function. Atria The left atrium is moderately dilated. Aortic Valve Normal aortic valve structure and function. There is no aortic valve stenosis. There is no aortic valve regurgitation. Mitral Valve The mitral valve appears normal. There is no mitral valve regurgitation. There is no mitral valve stenosis. Pulmonic Valve The pulmonic valve is likely normal. There is no pulmonic valve regurgitation. Tricuspid Valve Normal tricuspid valve structure and function. There is trace tricuspid valve regurgitation. Normal right atrial pressure. There is no evidence of pulmonary hypertension. Great Vessels All visible segments of the aorta are normal in size. The visualized portions of the pulmonary artery and branches are normal. Venous The inferior vena cava is normal in size and collapses greater than 50% with inspiration. Pericardium/Pleural There is no evidence of pericardial effusion. Prior Study Comparison No prior study available for comparison. Measurements 2D Linear Measurements IVSd: 1.60 0.6-0.9/0.6-1.0 cm LVIDd: 4.27 3.9-5.3/4.2-5.9 cm LVIDd Index: 2.28 2.4-3.2/2.2-3.1 cm/m2 LVIDs: 2.82 2.0-3.6 cm LVPWd: 1.69 0.7-1.1 cm LA Diam: 3.70 2.7-3.8/3.0-4.0 cm LAIDs Index: 1.98 1.5-2.3 cm/m2 LV Mass: 368.40 67-162/88-224 g LV Mass Index: 197.00 43-95/49-115 g/m2 LVOT Diam: 2.00 3.0+(-)1.3 cm 2D Systolic Function EF 4C: 57.10 >55% EF 2C: 61.80 >55% Mitral Valve MV Pk E: 1.11 MV PK A: 1.15 MV Decel Time: 324.00 E/A: 1.00 E'Lateral: 5.44 E'Medial: 4.03 E/E' Med: 27.50 E/E' Lat: 20.40 PHT: 95.00 MVA PHT: 2.32 Decel [place]: 3.44 Aortic Valve AoV Pk Sanchez: 1.99 AoV Mn Sanchez: 1.20 AoV VTI: 0.41 AoV Pk Grad: 16.00 Aov Mn Grad: 7.00 COTY Cont.VTI: 2.14 LVOT LVOT Pk Sanchez: 1.14 LVOT Mn Sanchez: 0.79 LVOT VTI: 0.28 LVOT Pk Grad: 5.00 LVOT Mn Grad: 3.00 LVOT Diam: 2.00 LVOT Area: 3.14 Diastolic Function MV Pk E: 1.11 MV Pk A: 1.15 E/A: 1.00 E'Medial: 4.03 E/E' Med: 27.50 E' Laterial: 5.44 E/E' Lat: 20.40 Right Ventricle TAPSE (mm): 18.00 TVS' [place]: 14.00 Tricuspid Valve TR Pk Sanchez: 1.70 TR Pk Grad: 12.00 RA Press: 3.00 RVSP: 15.00 Great Vessels Aorta Sinus of Valsalva: 2.80 2.0-3.5 cm Ao Asc: 3.00 2.1-3.4 cm Ao Arch: 2.80 Updated in Other Vendor System with Status of Final Gerardo Maxwell MD electronically signed on 12/28/2021 8:27:48 PM with status of Final
[2021-12-28 07:03] LABS: Anion Gap 17 (12-20); Blood Urea Nitrogen 55 mg/dL (9-16); Calcium 9.1 mg/dL (8.4-10.2); Carbon Dioxide 22 mmol/L (22-29); Chloride 105 mmol/L (96-108); Creatinine Clr Calc Pharmacy 27.7; Estimated Glomerular Filt Rate 21; Glucose Random 85 mg/dL (60-115); Potassium 4.2 mmol/L (3.3-5.1); Sodium 140 mmol/L (135-145)
[2021-12-28 07:18] LABS: Estimated Average Glucose 197 mg/dL; Hemoglobin A1C 170.8544 umol/L; Hemoglobin A1c % 8.5 %
[2021-12-28 07:20] VITALS: BP 166/71; PULSE 61; RESP 18; TEMP 36.9; O2SAT 98
[2021-12-28 07:33] LABS: Glucose, Whole Blood 87 mg/dL (60-115)
--- NOTE | 2021-12-28 07:35 | HO.PM.IMPN ---
Subjective Subjective Date of Service: 12/28/21 Interval History: chf excerebation Review of Systems still sob Denies any chest pain or nausea vomiting or abdominal pain or fever chills or cough or phlegm. Physical Exam Vital Signs: Vital Signs: Last Vital Signs Temp 98.4 F 12/28/21 07:20 Pulse 61 12/28/21 07:20 Resp 18 12/28/21 07:20 BP 166/71 H 12/28/21 07:20 Pulse Ox 98 12/28/21 07:20 BMI result Body Mass Index 31.4 Appearance: Alert.? Oriented X3.?sob , talks in short sentences. Eyes: Pupils equal, round and reactive to light.? Sclera nonicteric.? ENT: Pharynx normal.? Moist mucous membranes. cvs: rrr, [id number] , jvd present. res: clear to auscultation ,no rhonchii or wheezing abd: no rebound or guarding ,nt, bs present. ext pulses present , no cyanosis ,has edema neuro: axo3 , nonfocal. Objective Data Active Medications Acetaminophen (Acetaminophen 325 Mg Tablet) 650 mg PO Q6H PRN PRN Reason: Pain, Mild (Pain Scale 1-3) Amlodipine Besylate (Amlodipine Besylate 10 Mg Tablet) 10 mg PO DAILY [facility]; Protocol Last Admin: 12/27/21 09:25 Dose: 10 mg Documented by: CASSIUS Aspirin (Aspirin Enteric Coated 81 Mg Tablet.) 81 mg PO DAILY [facility] Last Admin: 12/27/21 09:25 Dose: 81 mg Documented by: CASSIUS Atorvastatin Calcium (Atorvastatin Calcium 40 Mg Tablet) 40 mg PO DAILY [facility] Last Admin: 12/27/21 09:25 Dose: 40 mg Documented by: CASSIUS Carvedilol (Carvedilol 25 Mg Tablet) 25 mg PO BID [facility]; Protocol Last Admin: 12/27/21 21:05 Dose: 25 mg Documented by: JONATAN Dextrose (Dextrose 50 % 25 Gm/50 Ml Syringe) 25 gm IVPUSH Q15M PRN; Protocol PRN Reason: per Hypoglycemia Standing Ord. Docusate Sodium (Docusate Sodium 100 Mg Capsule) 100 mg PO DAILY PRN PRN Reason: Constipation Enoxaparin Sodium (Enoxaparin Sodium 40 Mg/0.4 Ml Syringe) 40 mg SUBCUT Q24H [facility] Last Admin: 12/25/21 20:05 Dose: 40 mg Documented by: KIERSTEN Glucose (Glucose Gel 15 Gm Gel..Gram.) 15 gm PO Q15M PRN; Protocol PRN Reason: per Hypoglycemia Standing Ord. Furosemide 200 mg/ Sodium (Chloride) 100 mls @ 5 mls/hr IVCONT .Q20H [facility] Last Admin: 12/28/21 01:36 Dose: 10 mg/hr, 5 mls/hr Documented by: JONATAN Insulin Glargine (Insulin Glargine,Hum.Rec.Anlog 100 Unit/Ml 10 Ml Vial) 14 unit SUBCUT DAILY@1000 [facility] Last Admin: 12/27/21 09:23 Dose: 14 unit Documented by: CASSIUS Insulin Human Lispro (Insulin Lispro 100 Unit/Ml 3 Ml Vial) 0 unit SUBCUT QIDACHS [facility]; Protocol Last Admin: 12/27/21 21:06 Dose: 2 unit Documented by: JONATAN Isosorbide Mononitrate (Isosorbide Mononitrate 30 Mg Tab.Er.24h) 30 mg PO DAILY [facility]; Protocol Last Admin: 12/27/21 09:25 Dose: 30 mg Documented by: CASSIUS Lisinopril (Lisinopril 20 Mg Tablet) 20 mg PO DAILY [facility]; Protocol Last Admin: 12/27/21 09:25 Dose: 20 mg Documented by: CASSIUS Ondansetron HCl (Ondansetron Hcl 4 Mg/2 Ml Vial) 4 mg IVPUSH Q8H PRN PRN Reason: Nausea and Vomiting Pharmacy Consult (Consult Rx Perform Med Rec) 1 each MISCELLANE ONCE PRN PRN Reason: Consult order Sodium Chloride (0.9 % Sodium Chloride Flush 3 Ml Syringe) 3 ml IVFLUSH QSHIFT [facility] Last Admin: 12/27/21 21:06 Dose: 3 ml Documented by: JONATAN Labs CBC & Chem 7: 12/28/21 06:16 12/28/21 06:16 Labs: Laboratory Results - last 24 hr 12/27/21 12/27/21 12/27/21 11:00 16:15 20:23 Anion Gap Estim Creat Clear Calc Estimated GFR POC Glucose 191 H 104 244 H Random Glucose Estimat Average Glucose Hemoglobin A1c % Calcium 12/28/21 12/28/21 12/28/21 06:16 06:16 07:22 Anion Gap 17 Estim Creat Clear Calc 27.7 Estimated GFR 21 POC Glucose 87 Random Glucose 85 Estimat Average Glucose 197 Hemoglobin A1c % 8.5 Calcium 9.1 Assessment and Plan (1) CKD (chronic kidney disease) stage 3, GFR 30-59 ml/min: Status: Acute (2) MARIA ESTHER (acute kidney injury): Status: Acute (3) CHF (congestive heart failure): Status: Acute Plan 56-year-old female past medical history of CAD, hypertension, diabetes presents to the hospital with complaints of shortness of breath as well as decreased urine output 1. acute CHF exacerbation-chf etiology unclera -echo pending -? appears to be new onset, still symptomatic -? unclear exacerbating factors but patient has had? hypertensive crisis and reports chronic unclear shoulder hypertension echocardiogram today continue ? IV Lasix drip ,? strict I&O, daily weight,? and low-sodium diet 4 Liter neg cardiology and nephro following -continue IV Lasix , bb, imdur , nephro recomended to add hydralazine if blood pressure uncontrolled. 2.? elevated troponin thought to be-? likely multifactorial in the setting of acute CHF as well as hypertension -? denies any chest pain -? EKG shows marked? T-wave abnormalities, patient was discussed with Cardiology, felt to be? type 2, - will monitor on telemetry 3.? MARIA ESTHER on ckd -? treating with IV Lasix,renal dupplex r/o renal art stensis -? follow BMP 4.? normocytic anemia h/h stable around 9. -? no evidence of acute GI bleed -? denies any melena, or hemoptysis or hematemesis or hematochezia ?B12 and folate fine, iron studies normal except ferritin low, occult blood will be sent? stool of available will add po iron since ferrtin low. 5.? hypertension renal dupplex r/o renal art stenosis noted , reviewed with nephro-outpatient management. -? elevated seen by nephro: hold lisinopril due to maria esther on ckd. 6.? CAD - no chest pain -? troponins above -? continue aspirin, carvedilol 7.? diabetes:? fingerstick fluctuating between 100-170 range. ? Adjusted home insulin -? diabetic diet -? low-dose sliding scale insulin 8.Obesity: encouraged for cut down calories and Encouraged to lose weight, consider outpatient bariatric evaluation ?DVT prophylaxis:? Heparin subQ need for inatpient: chf -iv diuretics Quality Stroke Does the patient have a stroke diagnosis?: No VTE Prior VTE?: No VTE Risk Level:: Medical - moderate - high VTE Device Contraindication: Treatment Not Indicated VTE Drug Contraindication: N/A - Med Ordered
[2021-12-28] MEDS: 0.9 % Sodium Chloride Flush 3 ML SYRINGE IVFLUSH ×2 (10:26→21:03)
[2021-12-28] MEDS: amLODIPine Besylate 10 MG TABLET PO (10:26)
[2021-12-28] MEDS: Atorvastatin Calcium 40 MG TABLET PO (10:26)
[2021-12-28] MEDS: carvediloL 25 MG TABLET PO ×2 (10:26→21:00)
[2021-12-28] MEDS: Isosorbide Mononitrate 30 MG TAB.ER.24H PO (10:27)
[2021-12-28] MEDS: Aspirin Enteric Coated 81 MG TABLET.DR PO (10:27)
--- NOTE | 2021-12-28 10:57 | P.PNCA_ITS ---
Subjective Subjective Date of Service: 12/28/21 Principal diagnosis: CHF, HTN Interval history: Cardiology follow up for the above. Seen at 0900. Today she is seen walking in room without distress. Breathing is more comfortable, not yet at baseline normal. No chest pains, palpitations, dizziness, edema. She reports sleeping well. Has IV Lasix drip infusing. Review of Systems Review of Systems as above Yes all other systems are reviewed and are negative Physical Exam Vital Signs: Last Vital Signs Temp 98.4 F 12/28/21 07:20 Pulse 61 12/28/21 07:20 Resp 18 12/28/21 07:20 BP 166/71 H 12/28/21 07:20 Pulse Ox 98 12/28/21 07:20 BMI result Body Mass Index 31.4 Const General: cooperative, no acute distress, alert and awake Orientation/consciousness: patient oriented x3 Neck Neck: Yes normal visual inspection and Yes no JVD Resp Effort & Inspection: normal respiratory effort, able to speak in complete sentences and not labored Auscultation: clear to auscultation bilaterally (dim bases, no clear rales), no rales, no rhonchi and no wheezes Cardio Rate: regular rate Rhythm: regular rhythm Heart sounds: S1 normal heart sound present and S2 normal heart sound present Peripheral pulses: Peripheral pulses 2+ throughout GI Inspection: Yes normal to inspection Neuro General: patient oriented x3 Extrem General: Yes normal to inspection and No edema Objective Labs and Meds Result diagrams: 12/28/21 06:16 12/28/21 06:16 Lab results: Laboratory Results - last 24 hr 12/27/21 12/27/21 12/27/21 11:00 16:15 20:23 Hgb Hct Sodium Potassium Chloride Carbon Dioxide Anion Gap BUN Creatinine Estim Creat Clear Calc Estimated GFR POC Glucose 191 H 104 244 H Random Glucose Estimat Average Glucose Hemoglobin A1c % Calcium 12/28/21 12/28/21 12/28/21 06:16 06:16 06:16 Hgb 9.0 L Hct 27.3 L Sodium 140 Potassium 4.2 Chloride 105 Carbon Dioxide 22 Anion Gap 17 BUN 55 H Creatinine 2.36 H Estim Creat Clear Calc 27.7 Estimated GFR 21 POC Glucose Random Glucose 85 Estimat Average Glucose 197 Hemoglobin A1c % 8.5 Calcium 9.1 12/28/21 07:22 Hgb Hct Sodium Potassium Chloride Carbon Dioxide Anion Gap BUN Creatinine Estim Creat Clear Calc Estimated GFR POC Glucose 87 Random Glucose Estimat Average Glucose Hemoglobin A1c % Calcium Imaging Radiologist's impression: Impressions Renal Ultrasound 12/27/21 15:48 IMPRESSION: Bilateral renal stones, right greater than left. Limited renal Doppler exam. Slightly elevated resistive indices in the left kidney otherwise renal Doppler exam. Renal Ultrasound 12/27/21 15:48 IMPRESSION: Bilateral renal stones, right greater than left. Limited renal Doppler exam. Slightly elevated resistive indices in the left kidney otherwise renal Doppler exam. Progress Note: A&P Assessment and plan (1) Acute congestive heart failure: Status: Acute Assessment and Plan: Admit with increased sob. CXR with findings indicating CHF. BNP elevated. Being diuresed with IV Lasix drip, 10mg hr. Fluid balance neg 4.4 liters since admit. She report feeling better, however breathing not entirely back to normal yet. Sat 98% on RA. Echo done, report is pending. Cr 2.36, up from 2.25 yesterday. B [employer] yesterday still elevated at 1089, which was down from 1200 on admit. Continue to diurese with IV Lasix. Strict I+O monitoring. Close monitoring of electrolyte and kidney function with electrolyte replacement as warranted. BMP/ BNP in am. We will follow (2) CKD (chronic kidney disease) stage 3, GFR 30-59 ml/min: Status: Acute (3) Elevated troponin: Status: Acute Assessment and Plan: High sensitivity troponins 52 and 64 on admit. No reports of CP. Did have sob. Has hx of CAD with coronary stents. Echo as above. If shows reduced EF, WMA then will need ischemic eval. (4) CAD (coronary artery disease): Status: Acute Assessment and Plan: As above. Continue on aspirin, atorvastatin, carvedilol, lisinopril, imdur, amlodipine. Fall Risk Details Current Medications: Current Medications Acetaminophen (Acetaminophen 325 Mg Tablet) 650 mg PO Q6H PRN PRN Reason: Pain, Mild (Pain Scale 1-3) Amlodipine Besylate (Amlodipine Besylate 10 Mg Tablet) 10 mg PO DAILY [facility]; Protocol Last Admin: 12/28/21 10:26 Dose: 10 mg Documented by: Aspirin (Aspirin Enteric Coated 81 Mg Tablet.) 81 mg PO DAILY [facility] Last Admin: 12/28/21 10:27 Dose: 81 mg Documented by: Atorvastatin Calcium (Atorvastatin Calcium 40 Mg Tablet) 40 mg PO DAILY [facility] Last Admin: 12/28/21 10:26 Dose: 40 mg Documented by: Carvedilol (Carvedilol 25 Mg Tablet) 25 mg PO BID [facility]; Protocol Last Admin: 12/28/21 10:26 Dose: 25 mg Documented by: Dextrose (Dextrose 50 % 25 Gm/50 Ml Syringe) 25 gm IVPUSH Q15M PRN; Protocol PRN Reason: per Hypoglycemia Standing Ord. Docusate Sodium (Docusate Sodium 100 Mg Capsule) 100 mg PO DAILY PRN PRN Reason: Constipation Enoxaparin Sodium (Enoxaparin Sodium 40 Mg/0.4 Ml Syringe) 40 mg SUBCUT Q24H [facility] Last Admin: 12/25/21 20:05 Dose: 40 mg Documented by: Glucose (Glucose Gel 15 Gm Gel..Gram.) 15 gm PO Q15M PRN; Protocol PRN Reason: per Hypoglycemia Standing Ord. Furosemide 200 mg/ Sodium (Chloride) 100 mls @ 5 mls/hr IVCONT .Q20H [facility] Last Admin: 12/28/21 01:36 Dose: 10 mg/hr, 5 mls/hr Documented by: Insulin Glargine (Insulin Glargine,Hum.Rec.Anlog 100 Unit/Ml 10 Ml Vial) 14 unit SUBCUT DAILY@1000 [facility] Last Admin: 12/27/21 09:23 Dose: 14 unit Documented by: Insulin Human Lispro (Insulin Lispro 100 Unit/Ml 3 Ml Vial) 0 unit SUBCUT QIDACHS [facility]; Protocol Last Admin: 12/28/21 08:22 Dose: Not Given Documented by: Isosorbide Mononitrate (Isosorbide Mononitrate 30 Mg Tab.Er.24h) 30 mg PO DAILY [facility]; Protocol Last Admin: 12/28/21 10:27 Dose: 30 mg Documented by: Lisinopril (Lisinopril 20 Mg Tablet) 20 mg PO DAILY [facility]; Protocol Last Admin: 12/27/21 09:25 Dose: 20 mg Documented by: Ondansetron HCl (Ondansetron Hcl 4 Mg/2 Ml Vial) 4 mg IVPUSH Q8H PRN PRN Reason: Nausea and Vomiting Pharmacy Consult (Consult Rx Perform Med Rec) 1 each MISCELLANE ONCE PRN PRN Reason: Consult order Sodium Chloride (0.9 % Sodium Chloride Flush 3 Ml Syringe) 3 ml IVFLUSH QSHIFT [facility] Last Admin: 12/28/21 10:26 Dose: 3 ml Documented by: Time Spent With Patient Time: Total time spent is greater than 50% in coordination of care (as documented) at patient's floor/unit and/or counseling patient: Progress Note: Quality Stroke Does the patient have a stroke diagnosis?: No Procedures Date of Service Date of Service: 12/28/21
[2021-12-28 11:20] VITALS: BP 139/64; PULSE 57; RESP 16; TEMP 36.7; O2SAT 98
--- NOTE | 2021-12-28 11:23 | PM.PNNEP ---
Subjective Subjective Date of Service: 12/28/21 Principal diagnosis: CHF, HTN Interval history: Seen AM. Events noted. All recent data reviewed Physical Exam Vital Signs: Vital Signs: Last Vital Signs Temp 98.0 F 12/28/21 11:20 Pulse 57 12/28/21 11:20 Resp 16 12/28/21 11:20 BP 139/64 12/28/21 11:20 Pulse Ox 98 12/28/21 11:20 BMI result Body Mass Index 31.4 Const: General: comfortable Orientation/consciousness: patient oriented x3 Eyes: EOM: EOMs intact bilaterally Resp: Auscultation: diminished lung sounds Cardio: Rate: regular rate GI: Palpation (GI): Soft to palpation Neuro: General: patient oriented x3 and moves all extremities Objective Data Labs CBC & Chem 7: 12/28/21 06:16 12/28/21 06:16 Labs: Laboratory Results - last 24 hr 12/27/21 12/27/21 12/28/21 16:15 20:23 06:16 Hgb 9.0 L Hct 27.3 L Sodium Potassium Chloride Carbon Dioxide Anion Gap BUN Creatinine Estim Creat Clear Calc Estimated GFR POC Glucose 104 244 H Random Glucose Estimat Average Glucose Hemoglobin A1c % Calcium 12/28/21 12/28/21 12/28/21 06:16 06:16 07:22 Hgb Hct Sodium 140 Potassium 4.2 Chloride 105 Carbon Dioxide 22 Anion Gap 17 BUN 55 H Creatinine 2.36 H Estim Creat Clear Calc 27.7 Estimated GFR 21 POC Glucose 87 Random Glucose 85 Estimat Average Glucose 197 Hemoglobin A1c % 8.5 Calcium 9.1 Procedures Date of Service Date of Service: 12/28/21 Assessment & Plan Assessment and plan (1) CKD (chronic kidney disease) stage 3, GFR 30-59 ml/min: Status: Acute Assessment and Plan: 56-year-old female past medical history of longstanding DM, resistant and poorly controlled HTN, CKD with proteinuria presents with sob, decompensated CHF. 1. MARIA ESTHER on CKD: likely CRS, improved with diuresis/stable 2. 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 3. HTN_would hold TELMA I for now . continue beta-jacinta and nitrates; hydralazine if BP goes up Time Spent With Patient Time: Total time spent is greater than 50% in coordination of care (as documented) at patient's floor/unit and/or counseling patient: Progress Note: Quality Stroke Does the patient have a stroke diagnosis?: No
[2021-12-28 11:26] LABS: Glucose, Whole Blood 191 mg/dL (60-115)
[2021-12-28 15:51] VITALS: BP 148/68; PULSE 59; RESP 17; TEMP 36.2; O2SAT 97
[2021-12-28 16:09] LABS: Glucose, Whole Blood 182 mg/dL (60-115)
[2021-12-28 18:55] LABS: OBS Int Ctl Valid YES; OBS1 NEGATIVE (NEGATIVE)
[2021-12-28 19:42] VITALS: BP 155/69; PULSE 60; RESP 16; TEMP 36.3; O2SAT 97
[2021-12-28 20:26] LABS: Glucose, Whole Blood 202 mg/dL (60-115)
[2021-12-28] MEDS: Insulin Lispro 100 UNIT/ML 3 ML VIAL SUBCUT (21:01)
[2021-12-28 23:16] VITALS: BP 141/62; PULSE 55; RESP 18; TEMP 37.3; O2SAT 94
[2021-12-29 03:36] VITALS: BP 177/83; PULSE 57; RESP 18; TEMP 36.1; O2SAT 99
[2021-12-29 05:58] VITALS: BMI 31.1
[2021-12-29 06:33] LABS: Hematocrit 31.5 % (37.0-47.0); Hemoglobin 10.4 g/dl (12.0-16.0); Mean Corpuscular Hemoglobin 26.7 pg (27.0-33.0); Mean Platelet Volume 10.9 fL (9.4-12.3); Platelet Count 234 X10*3/uL (160-400); Red Blood Count 3.89 X10*6/uL (4.20-5.50); Red Cell Distribution Width 12.7 % (11.0-16.0); White Blood Count 6.6 X10*3/uL (4.8-10.8)
[2021-12-29 06:42] LABS: Anion Gap 18 (12-20); Blood Urea Nitrogen 64 mg/dL (9-16); Calcium 9.2 mg/dL (8.4-10.2); Carbon Dioxide 22 mmol/L (22-29); Chloride 102 mmol/L (96-108); Creatinine Clr Calc Pharmacy 24.4; Estimated Glomerular Filt Rate 18; Glucose Random 122 mg/dL (60-115); Potassium 4.1 mmol/L (3.3-5.1); Sodium 138 mmol/L (135-145)
[2021-12-29 06:55] LABS: B Type Natriuretic Peptide 454 pg/mL (<100)
[2021-12-29 07:19] VITALS: BP 138/67; PULSE 60; RESP 16; TEMP 36.7; O2SAT 95
[2021-12-29 07:27] LABS: Glucose, Whole Blood 117 mg/dL (60-115)
[2021-12-29] MEDS: Aspirin Enteric Coated 81 MG TABLET.DR PO (10:11)
[2021-12-29] MEDS: Isosorbide Mononitrate 30 MG TAB.ER.24H PO (10:11)
[2021-12-29] MEDS: amLODIPine Besylate 10 MG TABLET PO (10:11)
[2021-12-29] MEDS: 0.9 % Sodium Chloride Flush 3 ML SYRINGE IVFLUSH ×2 (10:11→15:59)
[2021-12-29] MEDS: carvediloL 25 MG TABLET PO (10:12)
[2021-12-29] MEDS: Atorvastatin Calcium 40 MG TABLET PO (10:12)
[2021-12-29 11:07] VITALS: BP 143/69; PULSE 62; RESP 18; TEMP 36.6; O2SAT 98
[2021-12-29 11:17] LABS: Glucose, Whole Blood 205 mg/dL (60-115)
--- NOTE | 2021-12-29 11:38 | PM.PNNEP ---
Subjective Subjective Date of Service: 12/29/21 Principal diagnosis: CHF, HTN Interval history: Seen AM. Events noted. All recent data reviewed Physical Exam Vital Signs: Vital Signs: Last Vital Signs Temp 97.8 F 12/29/21 11:07 Pulse 62 12/29/21 11:07 Resp 18 12/29/21 11:07 BP 143/69 H 12/29/21 11:07 Pulse Ox 98 12/29/21 11:07 BMI result Body Mass Index 31.1 Const: General: no acute distress Orientation/consciousness: patient oriented x3 Eyes: EOM: EOMs intact bilaterally Resp: Auscultation: diminished lung sounds Cardio: Rate: regular rate GI: Palpation (GI): Soft to palpation Neuro: General: patient oriented x3 and moves all extremities Objective Data Labs CBC & Chem 7: 12/29/21 05:59 12/29/21 05:59 Labs: Laboratory Results - last 24 hr 12/28/21 12/28/21 12/28/21 15:53 18:38 20:22 WBC RBC Hgb Hct MCV MCH MCHC RDW Plt Count MPV Absolute Nucleated RBC Nucleated RBC % (auto) Sodium Potassium Chloride Carbon Dioxide Anion Gap BUN Creatinine Estim Creat Clear Calc Estimated GFR POC Glucose 182 H 202 H Random Glucose Calcium B-Natriuretic Peptide Stool Occult Blood NEGATIVE 12/29/21 12/29/21 12/29/21 05:59 05:59 05:59 WBC 6.6 RBC 3.89 L Hgb 10.4 L Hct 31.5 L MCV 81.0 MCH 26.7 L MCHC 33.0 RDW 12.7 Plt Count 234 D MPV 10.9 Absolute Nucleated RBC 0.000 Nucleated RBC % (auto) 0.0 Sodium 138 Potassium 4.1 Chloride 102 Carbon Dioxide 22 Anion Gap 18 BUN 64 H Creatinine 2.67 H Estim Creat Clear Calc 24.4 Estimated GFR 18 POC Glucose Random Glucose 122 H Calcium 9.2 B-Natriuretic Peptide 454 H Stool Occult Blood 12/29/21 12/29/21 07:20 11:08 WBC RBC Hgb Hct MCV MCH MCHC RDW Plt Count MPV Absolute Nucleated RBC Nucleated RBC % (auto) Sodium Potassium Chloride Carbon Dioxide Anion Gap BUN Creatinine Estim Creat Clear Calc Estimated GFR POC Glucose 117 H 205 H Random Glucose Calcium B-Natriuretic Peptide Stool Occult Blood Procedures Date of Service Date of Service: 12/29/21 Assessment & Plan Assessment and plan (1) MARIA ESTHER (acute kidney injury): Status: Acute Assessment and Plan: 56-year-old female past medical history of longstanding DM, resistant and poorly controlled HTN, CKD with proteinuria presents with sob, decompensated CHF. 1. MARIA ESTHER on CKD: likely CRS, improved with diuresis/stable 2. CKD, proteinuric in a type II diabetic with resistant HTN: ddx includes diabetic kidney disease, other GN such as FSGS or possibly nephrosclerosis and/or ischemic renal disease. 3. HTN_would hold TELMA I for now . continue beta-jacinta and nitrates;? hydralazine if BP goes up Time Spent With Patient Time: Total time spent is greater than 50% in coordination of care (as documented) at patient's floor/unit and/or counseling patient: Progress Note: Quality Stroke Does the patient have a stroke diagnosis?: No
[2021-12-29] MEDS: Insulin Lispro 100 UNIT/ML 3 ML VIAL SUBCUT (11:59)
--- NOTE | 2021-12-29 12:40 | P.DS_ITS ---
DS: Providers Provider Date of Service: 12/29/21 Date of admission: 12/25/21 19:37 Primary care physician: [facility] Consults: 12/26/21 08:15 Consult to Cardiology Routine Consulting Provider: [facility] Reason for consultation: chf execerbation Has provider been notified: No 12/26/21 10:54 Consult to Nephrology Routine Consulting Provider: Julio Cesar Gusman Reason for consultation: arsalan in setting of chf Has provider been notified: No DS: Diagnosis Discharge Diagnosis (1) ARSALAN (acute kidney injury): Status: Acute DS: Summary Hospital Course Hospital Course: from initial hpi: Chief Complaint: SOB ?Prydeinig-speaking only, history is obtained with the help of cigarette tester over eye pad This is a 56-year-old female with past medical history of diabetes, hypertension, coronary artery disease who presents to the hospital with complaints of? shortness of breath on minimal exertion as well as decreased urine output.? Patient reports orthopnea, PND, lower extremity edema, as well as a dry cough for the past 1 day .? she is also complaining of decreased urine output, she denies any dysuria, urgency. she tells me that she has been using more than 2 pillows to be able to sleep without having shortness of breath while lying flat. Patient denies any chest pain, no nausea or vomiting, no diarrhea constipation, no urinary symptoms and no? headache or change in vision.? On arrival to the ED patient noted to be hemodynamically stable ?labs are significant for WBC count of 9.1, hemoglobin of 8.9 with no previous for comparison, hematocrit during 8.1, MCV of 84.1, initial potassium of 5.2 which improved 4.4, chloride of 112, creatinine of 2.46, troponin of 50 to increase to 64.6, BNP of 1212, UA negative, COVID-19 negative, influenza A/B as well as RSV negative Chest x-ray shows minimal increased basilar markings ?EKG shows sinus rhythm with fusion complexes and PACs,? diffuse T-wave abnormalities.? ?patient given IV Lasix, discussed with Cardiology, and will be admitted for further management hospital course: Patient was admitted for acute on chronic diastolic CHF. She was given IV Lasix through continues infusion, she diuresed well and shortness of breath improved. She will be transitioned to Lasix 80 mg b.i.d.. She was noted to have some elevated troponins this was felt to be secondary to CHF, she will follow up with Cardiology as outpatient. She had some acute kidney injury on CKD 4, Likely cardiorenal, had no evidence of obstruction. She had a normocytic anemia of about 9, unclear etiology at this time. For coronary disease she was continued on aspirin. For diabetes he was continue insulin. For her obesity weight loss was recommended. Patient is feeling better will be discharged home. Time Spent with Patient Time attestation: Total time spent providing and/or coordinating discharge services: Discharge coordination time: Greater than 30 minutes Quality: Safe Use of Opioids Does Pt have an Active Cancer Diagnosis on the Problem List?: No Quality: Stroke Does the patient have a stroke diagnosis?: No Physical Exam Vital Signs: Vital Signs: Last Vital Signs Temp 97.8 F 12/29/21 11:07 Pulse 62 12/29/21 11:07 Resp 18 12/29/21 11:07 BP 143/69 H 12/29/21 11:07 Pulse Ox 98 12/29/21 11:07 BMI result Body Mass Index 31.1 General: AO X 3, no acute distress Resp: CTA bilateral, no accessory muscles used CVS: S1,S2,RRR GI: soft, non tender, non distended Neuro: motor grossly intact, alert Psych: appropriate affect, appropriate insight DS: Data Data Completed and Pending Labs on day of discharge: Laboratory Results - last 24 hr 12/28/21 12/28/21 12/28/21 15:53 18:38 20:22 WBC RBC Hgb Hct MCV MCH MCHC RDW Plt Count MPV Absolute Nucleated RBC Nucleated RBC % (auto) Sodium Potassium Chloride Carbon Dioxide Anion Gap BUN Creatinine Estim Creat Clear Calc Estimated GFR POC Glucose 182 H 202 H Random Glucose Calcium B-Natriuretic Peptide Stool Occult Blood NEGATIVE 12/29/21 12/29/21 12/29/21 05:59 05:59 05:59 WBC 6.6 RBC 3.89 L Hgb 10.4 L Hct 31.5 L MCV 81.0 MCH 26.7 L MCHC 33.0 RDW 12.7 Plt Count 234 D MPV 10.9 Absolute Nucleated RBC 0.000 Nucleated RBC % (auto) 0.0 Sodium 138 Potassium 4.1 Chloride 102 Carbon Dioxide 22 Anion Gap 18 BUN 64 H Creatinine 2.67 H Estim Creat Clear Calc 24.4 Estimated GFR 18 POC Glucose Random Glucose 122 H Calcium 9.2 B-Natriuretic Peptide 454 H Stool Occult Blood 12/29/21 12/29/21 07:20 11:08 WBC RBC Hgb Hct MCV MCH MCHC RDW Plt Count MPV Absolute Nucleated RBC Nucleated RBC % (auto) Sodium Potassium Chloride Carbon Dioxide Anion Gap BUN Creatinine Estim Creat Clear Calc Estimated GFR POC Glucose 117 H 205 H Random Glucose Calcium B-Natriuretic Peptide Stool Occult Blood Discharge Plan Discharge Patient Disposition: Home, Self-Care Discharge Diagnosis: chf Referrals: [facility] [place] [Primary Care Provider] - 1 Week Discharge Medications: New furosemide 40 mg Tablet 80 mg PO BID@0900,1800 Qty: 120 0RF Protocol: Hold for SBP< HOLD for SBP < : 90 Continued atorvastatin 40 mg tablet 1 tab PO DAILY 0RF carvedilol 25 mg tablet 1 tab PO BID 0RF lisinopril 20 mg tablet 1 tab PO DAILY 0RF isosorbide mononitrate 30 mg tablet extended release 24 hr 1 tab PO QAM 0RF Humulin 70/30 U-100 Insulin 100 unit/mL (70-30) suspension 25 unit subcut DAILY@1000 0RF aspirin 81 mg tablet,delayed release (DR/EC) 1 tab PO DAILY 0RF amlodipine 10 mg tablet 1 tab PO DAILY 0RF hydrochlorothiazide 12.5 mg capsule 1 cap PO QAM 0RF Discharge Orders: Discharge Order (Routine); Ordered 12/29/21 Ordered By: Cedric Cole Diet: advance to usual diet Activity on Discharge: As tolerated Stand Alone Forms: Patient Portal Discharge page Care Plan Goals: recovery Health Concerns: chf Plan of Treatment: lasix 80mg bid, follow up cardio, bmp and bnp in one week Assessment: see above
--- NOTE | 2021-12-29 12:50 | PM.PNCARD ---
Subjective Subjective Date of Service: 12/29/21 <AMADOU Tran - Last Filed: 12/29/21 12:58> 12/29/21 <Gerardo Maxwell MD - Last Filed: 12/29/21 21:43> Principal diagnosis: CHF, HTN <AMADOU Tran - Last Filed: 12/29/21 12:58> Interval history: Cardiology follow-up for the above. Seen at 1100. Today she reports she is feeling well. She slept good and was able to get up and shower this morning. She does describe some tightness in her body from her neck to her hips prior to taking a shower which did improve afterwards. No shortness of breath with walking around the room. No chest discomfort, palpitations, dizziness, edema. Certified motor vehicle parts interpreter used. <AMADOU Tran - Last Filed: 12/29/21 12:58> Review of Systems Review of Systems As above <AMADOU Tran - Last Filed: 12/29/21 12:58> Yes all other systems are reviewed and are negative <AMADOU Tran - Last Filed: 12/29/21 12:58> Physical Exam Vital Signs: Last Vital Signs Temp 97.8 F 12/29/21 11:07 Pulse 62 12/29/21 11:07 Resp 18 12/29/21 11:07 BP 143/69 H 12/29/21 11:07 Pulse Ox 98 12/29/21 11:07 BMI result Body Mass Index 31.1 <AMADOU Tran - Last Filed: 12/29/21 12:58> Const General: cooperative, healthy appearing, no acute distress, alert and awake <AMADOU Tran - Last Filed: 12/29/21 12:58> Orientation/consciousness: patient oriented x3 <AMADOU Tran Last Filed: 12/29/21 12:58> Neck Neck: Yes normal visual inspection and Yes no JVD <AMADOU Tran Last Filed: 12/29/21 12:58> Resp Effort & Inspection: normal respiratory effort, able to speak in complete sentences and not labored <AMADOU Tran Last Filed: 12/29/21 12:58> Auscultation: clear to auscultation bilaterally, no crackles, no rales, no rhonchi and no wheezes <Ysabel MoiesWARRENDaleC - Last Filed: 12/29/21 12:58> Cardio Rate: regular rate <Ysabel Moise CLAUDIOC - Last Filed: 12/29/21 12:58> Rhythm: regular rhythm <CLAUDIO TranC - Last Filed: 12/29/21 12:58> Heart sounds: S1 normal heart sound present and S2 normal heart sound present <Ysabel MoiseWARRENC - Last Filed: 12/29/21 12:58> Peripheral pulses: Peripheral pulses 2+ throughout <Ysabel MoiseWARRENDale - Last Filed: 12/29/21 12:58> GI Inspection: Yes normal to inspection <Ysabel MoiseWARRENDaleC - Last Filed: 12/29/21 12:58> Neuro General: patient oriented x3 <Ysabel MoiseWARRENDaleC - Last Filed: 12/29/21 12:58> Extrem General: Yes normal to inspection and No edema <Ysabel MoiseWARREN-C - Last Filed: 12/29/21 12:58> Objective Labs and Meds Result diagrams: : 12/29/21 05:59 12/29/21 05:59 <Ysabel MoiseWARRENDaleC - Last Filed: 12/29/21 12:58> Lab results: Laboratory Results - last 24 hr 12/28/21 12/28/21 12/28/21 15:53 18:38 20:22 WBC RBC Hgb Hct MCV MCH MCHC RDW Plt Count MPV Absolute Nucleated RBC Nucleated RBC % (auto) Sodium Potassium Chloride Carbon Dioxide Anion Gap BUN Creatinine Estim Creat Clear Calc Estimated GFR POC Glucose 182 H 202 H Random Glucose Calcium B-Natriuretic Peptide Stool Occult Blood NEGATIVE 12/29/21 12/29/21 12/29/21 05:59 05:59 05:59 WBC 6.6 RBC 3.89 L Hgb 10.4 L Hct 31.5 L MCV 81.0 MCH 26.7 L MCHC 33.0 RDW 12.7 Plt Count 234 D MPV 10.9 Absolute Nucleated RBC 0.000 Nucleated RBC % (auto) 0.0 Sodium 138 Potassium 4.1 Chloride 102 Carbon Dioxide 22 Anion Gap 18 BUN 64 H Creatinine 2.67 H Estim Creat Clear Calc 24.4 Estimated GFR 18 POC Glucose Random Glucose 122 H Calcium 9.2 B-Natriuretic Peptide 454 H Stool Occult Blood 12/29/21 12/29/21 07:20 11:08 WBC RBC Hgb Hct MCV MCH MCHC RDW Plt Count MPV Absolute Nucleated RBC Nucleated RBC % (auto) Sodium Potassium Chloride Carbon Dioxide Anion Gap BUN Creatinine Estim Creat Clear Calc Estimated GFR POC Glucose 117 H 205 H Random Glucose Calcium B-Natriuretic Peptide Stool Occult Blood <AMADOU Tran - Last Filed: 12/29/21 12:58> Progress Note: A&P Assessment and plan (1) CHF (congestive heart failure): Status: Acute <AMADOU Tran - Last Filed: 12/29/21 12:58> Assessment and Plan: Admit with increased sob. CXR with findings indicating CHF. BNP elevated. Was diuresed with IV Lasix drip, 10mg hr. Fluid balance neg 6.9 liters since admit. She report breathing normal today. Sat 95% on room air. Echo done yesterday shows EF 50-55%, severe increase in the LV wall thickness, unable to rule out basal inferior wall motion abnormality. Cr 2.67 which is up from 2.36 yesterday. BNP today 454 which is down from 1089 2 days ago. Will stop IV Lasix drip at this time. Will start on Lasix 80 mg b.i.d. recommend BMP, BNP in 5-7 days. She can be discharged from a cardiology perspective. We will be arranging outpatient nuclear stress test and follow-up. Signs and symptoms of heart failure reviewed with her. Reviewed low-salt diet. <AMADOU Tran - Last Filed: 12/29/21 12:58> (2) CAD (coronary artery disease): Status: Acute <AMADOU Tran - Last Filed: 12/29/21 12:58> Assessment and Plan: History of CAD with coronary stents. No reports of anginal sounding chest discomfort. She did have shortness of breath on admission along with heart failure. Echo with low normal EF and unable to rule out a wall motion abnormality. Her tropes were only mildly elevated which can be consistent with her heart failure and impaired kidney function. Has been walking in the room without symptoms. We will be arranging an outpatient nuclear stress test. Continue aspirin, atorvastatin, carvedilol, isosorbide, amlodipine and lisinopril. <AMADOU Tran - Last Filed: 12/29/21 12:58> (3) CKD (chronic kidney disease) stage 3, GFR 30-59 ml/min: Status: Acute <AMADOU Tran - Last Filed: 12/29/21 12:58> (4) Elevated troponin: Status: Acute <AMADOU Tran - Last Filed: 12/29/21 12:58> Plan Seen and examined at bedside euvolemic. Echo has severe LVH due to uncontrolled BP. BP improving. Would pursue stress test as outpatient. <Gerardo Maxwell MD - Last Filed: 12/29/21 21:43> Fall Risk Details Current Medications: Current Medications Acetaminophen (Acetaminophen 325 Mg Tablet) 650 mg PO Q6H PRN PRN Reason: Pain, Mild (Pain Scale 1-3) Amlodipine Besylate (Amlodipine Besylate 10 Mg Tablet) 10 mg PO DAILY [facility]; Protocol Last Admin: 12/29/21 10:11 Dose: 10 mg Documented by: Aspirin (Aspirin Enteric Coated 81 Mg Tablet.) 81 mg PO DAILY [facility] Last Admin: 12/29/21 10:11 Dose: 81 mg Documented by: Atorvastatin Calcium (Atorvastatin Calcium 40 Mg Tablet) 40 mg PO DAILY [facility] Last Admin: 12/29/21 10:12 Dose: 40 mg Documented by: Carvedilol (Carvedilol 25 Mg Tablet) 25 mg PO BID [facility]; Protocol Last Admin: 12/29/21 10:12 Dose: 25 mg Documented by: Dextrose (Dextrose 50 % 25 Gm/50 Ml Syringe) 25 gm IVPUSH Q15M PRN; Protocol PRN Reason: per Hypoglycemia Standing Ord. Docusate Sodium (Docusate Sodium 100 Mg Capsule) 100 mg PO DAILY PRN PRN Reason: Constipation Enoxaparin Sodium (Enoxaparin Sodium 40 Mg/0.4 Ml Syringe) 40 mg SUBCUT Q24H [facility] Last Admin: 12/25/21 20:05 Dose: 40 mg Documented by: Furosemide (Furosemide 40 Mg Tablet) 80 mg PO BID@0900,1800 [facility]; Protocol Glucose (Glucose Gel 15 Gm Gel..Gram.) 15 gm PO Q15M PRN; Protocol PRN Reason: per Hypoglycemia Standing Ord. Insulin Glargine (Insulin Glargine,Hum.Rec.Anlog 100 Unit/Ml 10 Ml Vial) 14 unit SUBCUT DAILY@1000 [facility] Last Admin: 12/27/21 09:23 Dose: 14 unit Documented by: Insulin Human Lispro (Insulin Lispro 100 Unit/Ml 3 Ml Vial) 0 unit SUBCUT QIDACHS [facility]; Protocol Last Admin: 12/29/21 11:59 Dose: 2 unit Documented by: Isosorbide Mononitrate (Isosorbide Mononitrate 30 Mg Tab.Er.24h) 30 mg PO DAILY [facility]; Protocol Last Admin: 12/29/21 10:11 Dose: 30 mg Documented by: Lisinopril (Lisinopril 20 Mg Tablet) 20 mg PO DAILY [facility]; Protocol Last Admin: 12/27/21 09:25 Dose: 20 mg Documented by: Ondansetron HCl (Ondansetron Hcl 4 Mg/2 Ml Vial) 4 mg IVPUSH Q8H PRN PRN Reason: Nausea and Vomiting Pharmacy Consult (Consult Rx Perform Med Rec) 1 each MISCELLANE ONCE PRN PRN Reason: Consult order Sodium Chloride (0.9 % Sodium Chloride Flush 3 Ml Syringe) 3 ml IVFLUSH QSHIFT [facility] Last Admin: 12/29/21 10:11 Dose: 3 ml Documented by: <AMADOU Tran - Last Filed: 12/29/21 12:58> Time Spent With Patient Time: Total time spent is greater than 50% in coordination of care (as documented) at patient's floor/unit and/or counseling patient:22 <AMADOU Tran - Last Filed: 12/29/21 12:58> Progress Note: Quality Stroke Does the patient have a stroke diagnosis?: No <AMADOU Tran - Last Filed: 12/29/21 12:58> Procedures Date of Service Date of Service: 12/29/21 <AMADOU Tran - Last Filed: 12/29/21 12:58>
--- NOTE | 2021-12-29 12:57 | MHC.CM.PN ---
PT DCD HOME NO SKILLED SERVICES ORDERED BY
[2021-12-29 14:45] VITALS: BP 111/55; PULSE 61; RESP 18; TEMP 36.3; O2SAT 94
== END 2021-12-29 16:52 | disposition home or self-care (01) | DRG 194 ==
LOC: HO.ED 18:30 → HO.EDOVER 20:00 → HO.IMC 12-27 02:00
PROVIDERS: Internal Medicine; Nurse Practitioner Family; Admitting Provider Internal Medicine; Emergency Provider Emergency Medicine; Visit Provider Internal Medicine
DX: I13.0 Hypertensive heart and chronic kidney disease with heart failure and stage 1 through stage 4 chronic kidney disease, or unspecified chronic kidney disease (principal); N17.9 Acute kidney failure, unspecified; D63.1 Anemia in chronic kidney disease; I25.10 Atherosclerotic heart disease of native coronary artery without angina pectoris; E11.22 Type 2 diabetes mellitus with diabetic chronic kidney disease; I50.33 Acute on chronic diastolic (congestive) heart failure; N18.4 Chronic kidney disease, stage 4 (severe); E66.9 Obesity, unspecified; Z68.31 Body mass index [BMI] 31.0-31.9, adult; Z20.822 Contact with and (suspected) exposure to COVID-19; Z79.4 Long term (current) use of insulin; Z79.82 Long term (current) use of aspirin; Z79.899 Other long term (current) drug therapy
CPT/HCPCS: 36415; 51798; 71046; 76775; 80048; 80076; 81001; 82272; 82607; 82728; 82746; 82947; 83036; 83540; 83735; 83880; 84484; 85014; 85018; 85025; 85027; 85610; 87502; 87635; 93005; 93306; 93975; 96374; 99285; J1650; J1940

== ENCOUNTER → 2022-01-20 09:25 | Outpatient (REF) | payer MEDICAID, SELFPAY | LOC: HO.CARD 09:25 | PROVIDERS: Visit Provider Internal Medicine | DX: Z13.89 Encounter for screening for other disorder (principal) ==

== ENCOUNTER → 2022-01-21 09:36 | Outpatient (REF) | payer MEDICAID, SELFPAY ==
--- NOTE | ~2022-01-21 | NM_ITS ---
Lexiscan Myocardial perfusion study Indication: Coronary disease, assess for ischemia Technique: The patient was brought in for a Lexiscan perfusion study on 01/21/2022 and was injected 0.4 mg of Lexiscan intravenously. Within a minute of this injection 25 mCi of sestamibi was given intravenously. Images were obtained using the SPECT gamma camera interlaced with the gating device. Images were obtained in supine position. Resting perfusion study was performed on 01/24/2022. Patient was administered 25 mCi of sestamibi intravenously at rest. Images were then obtained in supine position. Total DLP 122mGy-cm. Images were processed with the software and compared side to side in short axis, horizontal long axis and vertical long axis views. Findings: Raw acquisition was reviewed. The stress perfusion study showed severely reduced tracer uptake in most of the inferior and inferolateral wall. However, there is improved uptake with CT attenuation correction and hence there could be components of diaphragmatic attenuation artifact. The gated study shows normal LV systolic function with calculated LVEF of 54%. LV cavity is normal in size. The gated study shows reduced thickening and contractility in the inferior/lateral wall. Resting study shows mildly reduced tracer uptake in the inferior/inferolateral wall. There is improved uptake with CT attenuation correction suggestive of diaphragmatic attenuation artifact. Gating at rest reveals normal wall motion with ejection fraction at 56%. The findings are consistent with mostly reversible perfusion defect in the inferior/inferolateral wall with some improvement during CT attenuation correction. NM/NM cardiolite stress test Impression: 1. Myocardial perfusion imaging study shows severe ischemia in the inferior/inferolateral wall. However, there is also improvement with CT attenuation correction and hence there could be components of diaphragmatic attenuation artifact as well. 2. Gated LVEF is 54% during stress and 56% during rest. 3. Transient ischemic dilatation not present. EKG component of the test reported separately.
--- NOTE | 2022-01-21 09:45 | CA_ITS ---
Acquisition Time: 2022-01-21 09:49:59 Total Exercise Time: 00:02:00 Test Indications: Dyspnea HF ELEVATED TROP Medications: FUROSEMIDE CARVEDILOL ATORVASTATIN LISINOPRIL AMLODIPINE ISOSORBIDE ASA INSULIN HCTZ Protocol: LEXISCAN Max HR: 080 BPM 48% of Pred: 164 BPM Max BP: 126/070 mmHG Max Work Load: 1.0 METS Pharmacological stress test with Lexiscan injection, while sitting and kicking her legs, without anginal symptoms, with isolated PVC, with normotensive response to injection, with nondiagnostic EKG for ischemia. Nuclear images pending. Test reviewed with Dr Rodriguez. Referred By: Ysabel Moise Overread By: YSABEL MOISE
== END ==
LOC: HO.CARD 09:36
PROVIDERS: PCP Internal Medicine; Visit Provider Nurse Practitioner Family
DX: I25.10 Atherosclerotic heart disease of native coronary artery without angina pectoris (principal); I50.9 Heart failure, unspecified; R77.8 Other specified abnormalities of plasma proteins
CPT/HCPCS: 78452; 93017; A9500; J0280; J2785

== ENCOUNTER 2022-01-27 14:10 | Outpatient (REF) | payer MEDICAID, SELFPAY ==
[2022-01-27 15:24] LABS: MANUAL DIFF FLAG NO
[2022-01-27 16:03] LABS: Basophils Absolute Auto 0.1 X10*3/uL (0.0-0.2); Basophils Percent Auto 0.6 % (0-2); Eosinophils Absolute Auto 0.3 X10*3/uL (0.0-0.4); Eosinophils Percent Auto 3.7 % (0-4); Hematocrit 34.8 % (37.0-47.0); Hemoglobin 11.5 g/dl (12.0-16.0); Imm Gran Abs Auto 0.02 X10*3/uL (0.00-0.03); Imm Gran Pct Auto 0.2 % (0.0-0.4); Lymphocytes Percent Auto 23.5 % (20-40); Mean Corpuscular Volume 81.7 fL (80.0-98.0); Mean Platelet Volume 11.6 fL (9.4-12.3); Monocytes Absolute Auto 0.4 X10*3/uL (0.1-1.2); Monocytes Percent Auto 4.9 % (2-11); Neutrophils Absolute Auto 5.6 x10*3/uL (2.0-8.3); Neutrophils Percent Auto 67.1 % (45-73); Platelet Count 204 X10*3/uL (160-400); Red Blood Count 4.26 X10*6/uL (4.20-5.50); Red Cell Distribution Width 12.7 % (11.0-16.0); White Blood Count 8.4 X10*3/uL (4.8-10.8)
[2022-01-27 16:07] LABS: INTERNATIONAL NORM RATIO 1.1 (0.9-1.1)
[2022-01-27 16:34] LABS: Alanine Aminotransferase 10 U/L (0-31); Albumin Level 4.4 g/dL (3.5-5.0); Alkaline Phosphatase 102 U/L (39-117); Anion Gap 15 (12-20); Aspartate Amino Transferase 14 U/L (5-31); B Type Natriuretic Peptide 177 pg/mL (<100); Bilirubin Total 0.4 mg/dL (0.0-1.0); Blood Urea Nitrogen 57 mg/dL (9-16); Carbon Dioxide 22 mmol/L (22-29); Chloride 104 mmol/L (96-108); Estimated Glomerular Filt Rate 17; Glucose Random 326 mg/dL (60-115); Potassium 5.3 mmol/L (3.3-5.1); Sodium 136 mmol/L (135-145); Total Protein 8.9 g/dL (6.5-8.0)
== END 2022-01-27 14:11 | disposition home or self-care (01) ==
LOC: HO.LAB 14:10
PROVIDERS: PCP Internal Medicine; Referring Provider Internal Medicine; Visit Provider Nurse Practitioner Family
DX: R94.39 Abnormal result of other cardiovascular function study (principal); I25.10 Atherosclerotic heart disease of native coronary artery without angina pectoris; I50.9 Heart failure, unspecified; I10 Essential (primary) hypertension; E11.9 Type 2 diabetes mellitus without complications; N18.30 Chronic kidney disease, stage 3 unspecified; E78.5 Hyperlipidemia, unspecified; Z95.5 Presence of coronary angioplasty implant and graft; Z79.84 Long term (current) use of oral hypoglycemic drugs; Z79.4 Long term (current) use of insulin; Z79.899 Other long term (current) drug therapy
CPT/HCPCS: 36415; 80053; 83880; 85025; 85610; 99212

== ENCOUNTER 2022-02-03 10:02 | Outpatient (REF) | payer MEDICAID, SELFPAY ==
[2022-02-03 12:17] LABS: Anion Gap 13 (12-20); Blood Urea Nitrogen 50 mg/dL (9-16); Calcium 9.3 mg/dL (8.4-10.2); Carbon Dioxide 16 mmol/L (22-29); Chloride 111 mmol/L (96-108); Estimated Glomerular Filt Rate 17; Glucose Random 231 mg/dL (60-115); Potassium 5.4 mmol/L (3.3-5.1); Sodium 135 mmol/L (135-145)
== END 2022-02-03 10:03 | disposition home or self-care (01) ==
LOC: HO.LAB 10:02
PROVIDERS: PCP Internal Medicine; Referring Provider Internal Medicine; Visit Provider Nurse Practitioner Family
DX: I25.10 Atherosclerotic heart disease of native coronary artery without angina pectoris (principal); Z95.5 Presence of coronary angioplasty implant and graft
CPT/HCPCS: 36415; 80048; 99211

== ENCOUNTER 2022-02-09 10:26 | Outpatient (REF) | payer MEDICAID, SELFPAY ==
[2022-02-09 12:49] LABS: B Type Natriuretic Peptide 188 pg/mL (<100)
[2022-02-09 13:02] LABS: Anion Gap 15 (12-20); Blood Urea Nitrogen 55 mg/dL (9-16); Calcium 9.1 mg/dL (8.4-10.2); Carbon Dioxide 19 mmol/L (22-29); Chloride 112 mmol/L (96-108); Estimated Glomerular Filt Rate 18; Glucose Random 105 mg/dL (60-115); Potassium 5.6 mmol/L (3.3-5.1); Sodium 140 mmol/L (135-145)
== END 2022-02-09 10:27 | disposition home or self-care (01) ==
LOC: HO.LAB 10:26
PROVIDERS: Visit Provider Nurse Practitioner Family
DX: I50.9 Heart failure, unspecified (principal); N17.9 Acute kidney failure, unspecified; N18.30 Chronic kidney disease, stage 3 unspecified
CPT/HCPCS: 36415; 80048; 83880

== ENCOUNTER → 2022-02-24 13:44 | Outpatient (BNVA) | payer MEDICAID, SELFPAY | PROVIDERS: PCP Internal Medicine; Referring Provider Internal Medicine; Visit Provider Nurse Practitioner Family | DX: R94.39 Abnormal result of other cardiovascular function study (principal); I25.10 Atherosclerotic heart disease of native coronary artery without angina pectoris; I50.9 Heart failure, unspecified; N18.30 Chronic kidney disease, stage 3 unspecified; Z79.899 Other long term (current) drug therapy; Z95.5 Presence of coronary angioplasty implant and graft | CPT/HCPCS: 99212 ==

== ENCOUNTER 2022-05-12 14:30 | Outpatient (REF) | payer MEDICAID, SELFPAY ==
[2022-05-12 16:14] LABS: Anion Gap 16 (12-20); Blood Urea Nitrogen 52 mg/dL (9-16); Calcium 8.5 mg/dL (8.4-10.2); Carbon Dioxide 16 mmol/L (22-29); Chloride 109 mmol/L (96-108); Estimated Glomerular Filt Rate 18; Glucose Random 218 mg/dL (60-115); Sodium 136 mmol/L (135-145)
== END 2022-05-12 14:31 | disposition home or self-care (01) ==
LOC: HO.LAB 14:30
PROVIDERS: Visit Provider Nurse Practitioner Family
DX: I13.0 Hypertensive heart and chronic kidney disease with heart failure and stage 1 through stage 4 chronic kidney disease, or unspecified chronic kidney disease (principal); I50.9 Heart failure, unspecified; N18.30 Chronic kidney disease, stage 3 unspecified; I25.10 Atherosclerotic heart disease of native coronary artery without angina pectoris; R94.39 Abnormal result of other cardiovascular function study; Z79.899 Other long term (current) drug therapy; Z98.890 Other specified postprocedural states; Z95.5 Presence of coronary angioplasty implant and graft
CPT/HCPCS: 36415; 80048; 99212